=== PATIENT | male | born 1965 | race Caucasian/White ===

== ENCOUNTER 2018-10-09 04:28 | Inpatient (IN) | payer OTHER ==
[~2018-10-09] VITALS: Ht 182.9 cm; Wt 86.4 kg
[~2018-10-09 04:28] MED LIST: ADV25050 INH; ASPI325T32 PO; BACTDS PO; CEPH500C PO; DILT60TA29 PO; FOLI-49 PO; LISI-471 PO; METO-429 PO; MULTI PO; QUET25TA33 PO; THIA100T56 PO; TIOT18CA INH; UDREG PO
[2018-10-09] MEDS ORDERED: SOD CHLORIDE 0.9% 1,000 ML IV STA ×2 (04:30→06:59)
[2018-10-09] MEDS ORDERED: NALOXONE (0.4 MG/ML) INJ IV STA (04:30)
[2018-10-09 04:43] VITALS: Ht 182.9 cm; Wt 86.4 kg
[2018-10-09] MEDS ORDERED: IPRATROPIUM (NEB) 0.5 MG/2.5 ML AMP NEB STA (05:22)
[2018-10-09] MEDS ORDERED: ALBUTEROL 0.083% (NEB) 2.5 MG/3 ML AMP NEB STA (05:22)
--- NOTE | 2018-10-09 05:25 | ERD ---
ER Documentation Chief Complaint Chief Complaint ARLIN RA81,suspected drug overdose,agitated HPI This is a 53-year-old male comes in with complaints suspected drug overdose via rescue. Patient was agitated upon arrival. He admits to using heroin. Upon reviewing EMR, patient has a long-standing history of polysubstance abuse. Denies any fevers or chills. Denies any other current complaints. ROS All systems reviewed and are negative except as per history of present illness. Medications Home Meds Active Scripts Cephalexin* (Cephalexin*) 500 Mg Capsule, 500 MG PO Q6, #28 CAP Prov:RITU FORREST 07/15/16 Sulfamethoxazole-Trimethoprim* (Bactrim* DS) 800-160 Mg Tab, 1 TAB PO BID for 7 Days, TAB Prov:RITU FORREST 07/15/16 Quetiapine Fumarate* (Quetiapine Fumarate*) 25 Mg Tablet, 50 MG PO BID, #20 TAB Prov:SVETLANA LUIS MD 07/06/16 Tiotropium [place]* (Spiriva*) 18 Mcg Cap.w.dev, 1 INH INH DAILY, #1 1 Refill Prov:SVETLANA LUIS MD 07/06/16 Thiamine* (Vitamin B-1*) 100 Mg Tablet, 100 MG PO DAILY, #30 TAB Prov:SVETLANA LUIS MD 07/06/16 Salmeterol Xinaf/Fluticasone* (Advair*) 250-50 Diskus Inhaler, 1 INH INH BID, #1 2 Refills Prov:SVETLANA LUIS MD 07/06/16 Multivitamins* (Theragran*) 1 Tab Tab, 1 TAB PO DAILY, #30 TAB Prov:SVETLANA LUIS MD 07/06/16 Metoprolol Tartrate* (Lopressor*) 50 Mg Tab, 50 MG PO Q6, #60 TAB Prov:SVETLANA LUIS MD 07/06/16 Metoclopramide* (Reglan*) 10 Mg/10 Ml Soln, 10 MG PO Q6, #60 Prov:SVETLANA LUIS MD 07/06/16 Lisinopril* (Lisinopril*) 20 Mg Tablet, 20 MG PO BID, #60 TAB Prov:SVETLANA LUIS MD 07/06/16 Folic Acid* (Folic Acid*) 1 Mg Tablet, 1 MG PO DAILY, #30 TAB Prov:SVETLANA LUIS MD 07/06/16 Diltiazem Hcl* (Cardizem*) 60 Mg Tablet, 60 MG PO QID, #120 TAB Prov:SVETLANA LUIS MD 07/06/16 Reported Medications Aspirin* (Aspirin* EC) 325 Mg Tab, 325 MG PO DAILY, TAB 05/16/16 Allergies Allergies: Coded Allergies: aripiprazole (Verified Allergy, Severe, CONFUSION,GETTING CRAZY, 07/15/16) PMhx/Soc History of Surgery: Yes (s/p L1 to S1 laminectomy for evacuation of epidural abscess 05/20/16) Anesthesia Reaction: Yes Hx Neurological Disorder: No Hx Respiratory Disorders: No Hx Cardiac Disorders: Yes (HYPERTENSION) Hx Psychiatric Problems: Yes (ANXIETY) Hx Miscellaneous Medical Probl: Yes (polysubstance abuse, smoker, chronic back pain, injury R forearm) Hx Alcohol Use: Yes (BEER 2-4 A DAY) Hx Substance Use: Yes (HEROIN) Hx Tobacco Use: Yes (15 CIGARETTES A DAY) Smoking Status: Current every day smoker Physical Exam Vitals Vital Signs Date Temp Pulse Resp B/P (MAP) Pulse Ox O2 O2 Flow FiO2 Time Delivery Rate 10/09/18 26 95 Nasal 4.0 05:37 Cannula 10/09/18 96.8 99 19 133/99 95 04:43 (110) Physical Exam Const: No acute distress Head: Atraumatic Eyes: Normal Conjunctiva ENT: Normal External Ears, Nose and Mouth. Neck: Full range of motion. No meningismus. Resp: Scattered wheezes bilaterally Cardio: Regular rate and rhythm, no murmurs Abd: Soft, non tender, non distended. Normal bowel sounds Skin: No petechiae or rashes Back: No midline or flank tenderness Ext: No cyanosis, or edema Neur: Awake and alert Psych: Normal Mood and Affect Results 24 hrs Laboratory Tests Test 10/09/18 05:19 Urine Color YELLOW Urine Clarity CLEAR Urine pH 5.0 Urine Specific [place] 1.025 Urine Ketones NEGATIVE mg/dL Urine Nitrite NEGATIVE mg/dL Urine Bilirubin NEGATIVE mg/dL Urine Urobilinogen NEGATIVE mg/dL Urine Leukocyte Esterase NEGATIVE Ann/ul Urine Microscopic RBC 8 /HPF Urine Microscopic WBC 2 /HPF Urine Mucus FEW /HPF Urine Hemoglobin 1+ mg/dL Urine Glucose NEGATIVE mg/dL Urine Total Protein NEGATIVE mg/dl Current Medications Medications Dose Sig/Mera Start Time Status Last (Trade) Ordered Route PRN Stop Time Admin Dose Reason Admin Sodium 1,000 ml @ Q1H STAT 10/09/18 DC 10/09/18 Chloride 1,000 mls/hr IV 04:30 10/09/18 05:31 05:29 Naloxone 0.4 mg ONCE STAT 10/09/18 DC 10/09/18 HCl IV 04:30 10/09/18 05:30 (Narcan) 04:32 Albuterol 5 mg ONCE STAT 10/09/18 DC 10/09/18 (Proventil NEB 05:22 10/09/18 05:35 0.083% (Neb)) 05:23 Ipratropium 0.5 mg ONCE STAT 10/09/18 DC 10/09/18 Loraine NEB 05:22 10/09/18 05:36 (Atrovent 05:23 0.02% (Neb)) Procedures/MDM Medical decision makin-year-old male who comes in with likely heroin overdose. Patient is very evasive when asked questions about suicidality. At this point is pending telemetry psychiatry evaluation. Patient's behavioral symptoms have stabilized while in the department. Patient is medically cleared and appropriate for psychiatric evaluation and work up. I agree with the telemetry psychiatrist evaluation they feel that the patient is gravely disabled and will require psychiatric hospitalization No e/o neurologic, toxic, infectious, or metabolic cause. Patient also had evidence of some mild COPD flare. He was given breathing treatment breath sounds cleared. Chest X-ray 1V Interpreted by me: Soft Tissue: No acute abnormalities Bones: No acute abnormalities Mediastinum/Cardiac Silhouette/Lungs: [No acute abnormalities] Departure Diagnosis: Primary Impression: Acute drug overdose Encounter type: initial encounter Injury intent: undetermined intent Qualified Codes: T50.904A - Poisoning by unspecified drugs, medicaments and biological substances, undetermined, initial encounter Additional Impression: COPD (chronic obstructive pulmonary disease) COPD type: unspecified COPD Qualified Codes: J44.9 - Chronic obstructive pulmonary disease, unspecified Condition: Serious JOSE EDUARDOELMER SElida Oct 09, 2018 05:25
--- NOTE | 2018-10-09 05:48 | PSY ---
Date/Time of Note Date/Time of Note DATE: 10/09/18 TIME: 05:46 Psychiatric Subjective Eval Consent Pt consented to telemedicine: Yes Subjective Evaluation Patient location: emergency Chief Complaint: BIBA RA81,suspected drug overdose,agitated Medical history Problems Medical Problems: (1) Abscess Status: Acute (2) Abscess in epidural space of L2-L5 lumbar spine Status: Acute (3) Acute drug overdose Status: Acute (4) Alcoholism /alcohol abuse Status: Chronic (5) Asymmetric septal hypertrophy Status: Chronic (6) COPD (chronic obstructive pulmonary disease) Status: Chronic (7) Encephalopathy acute Status: Acute (8) Hepatitis C antibody positive in blood Status: Chronic (9) Hypertension Status: Chronic (10) Obesity (BMI 30.0-34.9) Status: Chronic (11) Polydrug abuse Status: Chronic (12) Psoas abscess, right Status: Acute (13) Staphylococcus aureus bacteremia with sepsis Status: Acute Allergies: Coded Allergies: aripiprazole (Verified Allergy, Severe, CONFUSION,GETTING CRAZY, 07/15/16) Psychiatric Objective Eval Mental Status Examination: Laboratory Results Laboratory Tests Test 10/09/18 05:19 Urine Color YELLOW Urine Clarity CLEAR Urine pH 5.0 Urine Specific [place] 1.025 Urine Ketones NEGATIVE mg/dL Urine Nitrite NEGATIVE mg/dL Urine Bilirubin NEGATIVE mg/dL Urine Urobilinogen NEGATIVE mg/dL Urine Leukocyte Esterase NEGATIVE Ann/ul Urine Microscopic RBC 8 /HPF Urine Microscopic WBC 2 /HPF Urine Mucus FEW /HPF Urine Hemoglobin 1+ mg/dL Urine Glucose NEGATIVE mg/dL Urine Total Protein NEGATIVE mg/dl Assessment and Plan Recommendation/Plan Discharge Disposition: Psychiatric inpatient Legal Status: Place involuntary hold Assessment Additional comments: IDENTIFYING INFORMATION: 53 year old Male patient who is currently located at the hospital and for whom psychiatric consultation was requested. SOURCES OF INFORMATION: The patient who appears to be unreliable and the medical records; the nursing staff. CHIEF COMPLAINT: "water". HISTORY OF PRESENT ILLNESS: The patient was interviewed via telemedicine in the presence of and under the supervision of nursing staff of the hospital. The consent to conducting this interview via telemedicine was obtained by the nursing staff at the hospital. Dr. Conrteras reports that the patient presented with agitation, found at a rooftop with heroin needles nearby. the patient has a history of past suicide attempts. Is not on a 5150 hold. The patient is not able to answer questions appropriately. He keeps repeating "I need water". Unable to assess Further as the patient was not able to cooperate with the interview at this time. PAST MEDICAL HISTORY: Unable to assess as the patient was not able to cooperate with the interview at this time. CURRENT MEDICATIONS: Unable to assess as the patient was not able to cooperate with the interview at this time. ALLERGIES TO MEDICATIONS: abilify per chart. LABORATORY TESTS: pending. SOCIAL HISTORY: Unable to assess as the patient was not able to cooperate with the interview at this time. REVIEW OF SYSTEMS: unable to assess due to the patient not being able to cooperate. MENTAL STATUS EXAMINATION: General Appearance and Behavior: Agitated, appears to be responding to internal stimuli, uncooperative with most of the interview, distant with the current interviewer, makes poor eye contact, poorly groomed, increased psychomotor activity, no abnormal movements noted. Speech: Normal rate, regular rhythm, normal latency, loud at times volume, decreased amount, Flow of thought: tangential, illogical, not goal-directed. Content of thought: appears to be responding to internal stimuli, unable to a ssess further, Mood: "OK". Affect: agitated, angry, flat, decreased range of reactivity. Attention: normal based on the interview. Insight: poor. Judgment: poor. Memory: normal based on the interview. Sensorium: alert and oriented to person, unable to assess further. ASSESSMENT: The patient's presentation and history are consistent with the diagnosis of unspecified delirium, unspecified psychotic disorder, opiate use disorder. The patient presents with agitation, delirium in the context of possible heroine use. the symptoms were not reversed by naloxone so far. PLAN: - Medication management: Please continue addressing and treating any underlying medical problems that can cause or exacerbate delirium. Would avoid medications that can cause or exacerbate delirium including opioids, antihistamines, anticholinergics, benzodiazepines. Would recommend reorienting the patient frequently and maintaining a stable sleep schedule. Would start haloperidol 5 mg IM PRN severe agitation q4 hours. - Labs: Please check CBC, CMP, Alcohol level, UDS. - Psychotherapy: Provided supportive psychotherapy and psychoeducation. - Disposition: if no underlying cause for delirium is found, and if the patient is medically cleared and the symptoms persist, then would recommend involuntary admission to the inpatient psychiatric unit given the severity of the patient's psychiatric condition and the fact that the patient is an imminent danger to self and/or others so long as the patient has been cleared medically for admission to [facility]. Inpatient psychiatric admission is at this time the least restrictive environment where the patient can receive the psychiatric care that is needed. Would place on suicide precautions. The patient fulfills criteria for being placed on an involuntary hold for being gravely disabled due to a psychiatric disorder. I called the emergency room physician who is taking care of the patient to discuss about the above plan but the emergency room physician is not available at this time. I left my phone number with the hospital staff requesting a callback so that the emergency room physician can reach me when they become available. CICI SALINAS MD Oct 09, 2018 05:48
[2018-10-09] MEDS ORDERED: HALOPERIDOL 5 MG INJ IM ONE (06:30)
[2018-10-09] MEDS ORDERED: INSULIN REGULAR, HUMAN 100 UNIT/1 ML 3ML VIAL IVP STA (06:59)
[2018-10-09] MEDS ORDERED: ALBUTEROL 0.5% (NEB) 2.5 MG/0.5 ML AMP INH STA (06:59)
[2018-10-09] MEDS ORDERED: NA BICARBONATE 8.4% 50 ML SYG IV STA (06:59)
[2018-10-09] MEDS ORDERED: DEXTROSE 50% 50 ML SYRINGE ONE (08:05)
[2018-10-09] MEDS ORDERED: CA CHLORIDE 10% 10 ML SYRINGE IV STA (08:17)
[2018-10-09] MEDS ORDERED: NA POLYST SULFON 15 GM/60 ML BTL PO STA (08:17)
[2018-10-09] MEDS ORDERED: DEXTROSE 50% 50 ML SYRINGE IV ONE (08:30)
--- NOTE | 2018-10-09 08:46 | QN ---
Documentation Comment Medical decision making: Patient was found to have acute renal failure and hyperkalemia with a potassium of 7.2. This was rechecked and confirmed. EKG showed peaked T waves. The patient was treated with albuterol, insulin, glucose, bicarbonate, Kayexalate, and calcium. The patient required sedation with Haldol for agitation and combativeness to protect himself and to protect staff. Soft restraints were placed as well. The patient will be admitted to the care of Dr. Newman as the patient has [employer] insurance. He is unstable for transfer at this time given the hyperkalemia with EKG changes. Critical Care: Time: 35 minutes excluding all billable procedures. Treatments/Evaluations: Close monitoring and treatment of unstable vital signs, cardiorespiratory, and neurologic status, while maintaining tight balance of fluid, respiratory, and cardiac interventions. EKG read by me: Rate/Rhythm: Regular rate and rhythm at a rate of 96 Intervals: Normal Impression: Peak T waves consistent with hyperkalemia MARIAMA PNADEY MD Oct 09, 2018 08:46
[2018-10-09] MEDS ORDERED: LIDOCAINE 1% (MPF) 5 ML VIAL SC ONE (09:00)
[2018-10-09] MEDS ORDERED: IPRATROPIUM (NEB) 0.5 MG/2.5 ML AMP NEB PRN (09:30)
[2018-10-09] MEDS ORDERED: DOCUSATE SODIUM 100 MG CAP PO PRN (09:30)
[2018-10-09] MEDS ORDERED: NALOXONE (0.4 MG/ML) INJ IV PRN (09:30)
[2018-10-09] MEDS ORDERED: ALBUTEROL/IPRATROPIUM (NEB) 3 ML AMP NEB PRN (09:30)
[2018-10-09] MEDS ORDERED: ACETAMINOPHEN 650MG/20.3ML CUP PO PRN (09:30)
[2018-10-09] MEDS ORDERED: NACL 0.9% 3 ML SYG IV SCH (09:30)
[2018-10-09] MEDS ORDERED: ONDANSETRON 4 MG INJ IV PRN (09:30)
[2018-10-09] MEDS ORDERED: VANCOMYCIN IV PER PHARMACY XX SCH (09:30)
[2018-10-09] MEDS: FAMOTIDINE 20 MG INJ IV SCH ×2 (09:52→21:01)
[2018-10-09] MEDS ORDERED: MIDAZOLAM 1 MG/ML 5 ML INJ IV ONE (10:00)
[2018-10-09] MEDS: PIPER-TAZO 3.375 GM IV (PMX) 100 ML IVPB SCH ×2 (10:05→18:18)
--- NOTE | 2018-10-09 10:18 | HP ---
Date/Time of Note Date/Time of Note DATE: 10/09/18 TIME: 10:15 Assessment/Plan VTE Prophylaxis Pharmacological prophylaxis: heparin Lines/Catheters IV [facility] Saline Lock Assessment/Plan Hospital Course 53 years old male with history of polysubstance abuse presented with encephalopathy. He was found to be in sepsis of unknown origin. He was also found to have acute kidney injury in the setting of rhabdomyolysis. His potassium was severely elevated with EKG changes as well. Urine toxicology screen was positive for amphetamines. (1) severe sepsis, with lactic acidosis, unknown origin. Zosyn and vancomycin per pharmacy, lactic acid, ID consultation, culture urine, blood (2) Rhabdomyolysis, setting of methamphetamine overdose, IV fluid, nephrology consultation to Dr. Cristina, serial total CK (3) Elevated liver enzymes, unknown etiology, patient with history of hepatitis B and C, will order abdominal ultrasound (4) High anion gap metabolic acidosis, in the setting of AK I and lactic acidosis, IV D5 bicarbonate, nephrology consultation,, IV fluid and serial lactic acid (5) ARF (acute renal failure), in the setting of rhabdomyolysis, serial creatinine daily, allergy consultation (6) Acute hyperkalemia, setting of AK I and rhabdomyolysis, IV serum bicarb, consultation (7) Acute drug overdose, social worker delinquency prevention consult Problems: (1) Sepsis (2) Rhabdomyolysis (3) Elevated liver enzymes (4) High anion gap metabolic acidosis (5) ARF (acute renal failure) Status: Acute (6) Acute hyperkalemia Status: Acute (7) Acute drug overdose Status: Acute Qualifiers: Encounter type: initial encounter Injury intent: undetermined intent Qualified Codes: T50.904A - Poisoning by unspecified drugs, medicaments and biological substances, undetermined, initial encounter Result Diagram: 10/09/18 0740 10/09/18 0740 Results 24hrs Laboratory Tests Test 10/09/18 05:02 10/09/18 05:19 10/09/18 07:40 10/09/18 07:59 White Blood Count 34.0 #H 30.5 H Red Blood Count 5.41 # 5.54 Hemoglobin 17.4 # 17.7 Hematocrit 54.7 #H 54.7 H Mean Corpuscular Volume 101.1 H 98.7 Mean Corpuscular 32.2 31.9 Hemoglobin Mean Corpuscular 31.8 L 32.4 Hemoglobin Concent Red Cell Distribution 13.2 13.2 Width Platelet Count 399 333 Mean Platelet Volume 10.6 #H 10.2 Immature Granulocytes % 2.000 H 2.000 H Neutrophils % 90.0 H Segmented Neutrophils 89 H 83 H % (Manual) Band Neutrophils % 7 H 13 H (Manual) Lymphocytes % 2.7 L Lymphocytes % (Manual) 3 L 2 L Monocytes % 4.7 Monocytes % (Manual) 1 2 Eosinophils % 0.3 Basophils % 0.3 Nucleated Red Blood 0.0 0.0 Cells % Immature Granulocytes # 0.690 H 0.600 H Neutrophils # 27.5 H Neutrophils # (Manual) 31.0 H 26.5 H Band Neutrophils # 2.3 H 3.9 H Lymphocytes (Manual) 1.0 0.6 L Lymphocytes # 0.8 Monocytes # 1.4 H Monocytes # (Manual) 0.3 0.6 Eosinophils # 0.1 Basophils # 0.1 Nucleated Red Blood 0.0 Cells # Platelet Estimate NORMAL NORMAL Giant Platelets 3 H 3 H Poikilocytosis 1+ Sodium Level 142 146 H Potassium Level 7.2 *H 7.3 *H Chloride Level 103 105 Carbon Dioxide Level 21 18 L Anion Gap 18 H 23 H Blood Urea Nitrogen 39 H 42 H Creatinine 3.04 H 3.18 H Est Glomerular Filtrat 22 L 20 L Rate mL/min Glucose Level 122 119 Calcium Level 8.3 L 8.3 L Total Bilirubin 0.1 L Direct Bilirubin 0.00 Indirect Bilirubin 0.1 Aspartate Amino 671 H Transf (AST/SGOT) Alanine 402 H Aminotransferase (ALT/SG PT) Alkaline Phosphatase 71 Total Protein 8.8 H Albumin 4.9 Globulin 3.90 H Albumin/Globulin Ratio 1.25 Salicylates Level < 1.0 L Acetaminophen Level < 10.0 L Ethyl Alcohol Level < 10.0 H Urine Color YELLOW Urine Clarity CLEAR Urine pH 5.0 Urine Specific [place] 1.025 Urine Ketones NEGATIVE Urine Nitrite NEGATIVE Urine Bilirubin NEGATIVE Urine Urobilinogen NEGATIVE Urine Leukocyte Esterase NEGATIVE Urine Microscopic RBC 8 H Urine Microscopic WBC 2 Urine Mucus FEW A Urine Hemoglobin 1+ H Urine Glucose NEGATIVE Urine Total Protein NEGATIVE Urine Opiates Screen Negative Urine Barbiturates Negative Urine Amphetamines POSITIVE Screen Urine Benzodiazepines Positive Screen Urine Cocaine Screen Negative Urine Cannabinoids Negative Polychromasia 1+ Spherocytes 1+ Creatine Kinase 73302 H Bedside Glucose 84 HPI/ROS Admit Date/Time Admit Date/Time Hx of Present Illness This is a 53 years old male with history of polysubstance abuse, COPD, hypertension, obesity, epidural abscess of the lumbar spine, hepatitis B and C was brought to the hospital for acute encephalopathy. Patient is quite altered and not able to provide detailed HPI. According to EMR patient was very agitated upon arrival in the emergency room. He had multiple lab abnormalities including leukocytosis, elevated creatinine, hyperkalemia with EKG changes, metabolic acidosis, elevated liver enzymes, elevated total CK at 41,000. He received focused treatment for hyperkalemia in the ER. Patient received Narcan as well. Urine toxicology screen was negative for opiates but positive for amphetamine and benzodiazepines. ROS Patient is altered and not able to provide detailed ROS PMH/Family/Social Past Medical History Medications Current Medications IV Flush (NS 3 ml) 3 ml PER PROTOCOL IV ; Start 10/09/18 at 09:30 Naloxone HCl (Narcan) 0.4 mg Q3M PRN IV DECREASED REPIRATORY RATE; Start 10/09/18 at 09:30 Ondansetron HCl (Zofran Inj) 4 mg Q6H PRN IV NAUSEA AND/OR VOMITING; Start 10/09/18 at 09:30 Albuterol/ Ipratropium (Duoneb) 3 ml Q2H RESP THERAPY PRN NEB SHORTNESS OF BREATH; Start 10/09/18 at 09:30 Ipratropium [place] (Atrovent 0.02% (Neb)) 0.5 mg Q2H RESP THERAPY PRN NEB SHORTNESS OF BREATH; Start 10/09/18 at 09:30 Acetaminophen (Tylenol Liquid) 650 mg Q6H PRN PO PAIN LEVEL 1-3 OR FEVER; Start 10/09/18 at 09:30 Docusate Sodium (Colace) 100 mg Q12H PRN PO CONSTIPATION; Start 10/09/18 at 09:30 Famotidine (Pepcid Iv) 20 mg Q12 IV Last administered on 10/09/18at 09:52; Admin Dose 20 MG; Start 10/09/18 at 09:30 Sodium Bicarbonate 150 meq/Dextrose 1,000 ml @ 100 mls/hr Q10H IV ; Start 10/09/18 at 11:00 Piperacillin Sod/ Tazobactam Sod 100 ml @ 200 mls/hr Q8H IVPB Last administered on 10/09/18at 10:05; Admin Dose 200 MLS/HR; Start 10/09/18 at 10:00 Vancomycin HCl (Vanco Iv Per Pharmacy) VANCOMYCIN PER PHARMACY PER PROTOCOL XX ; Start 10/09/18 at 09:30 Vancomycin HCl 1.75 gm/Sodium Chloride 500 ml @ 125 mls/hr ONCE IVPB ; Start 10/09/18 at 11:00; Stop 10/09/18 at 14:59 Coded Allergies: No Known Allergies (Verified Allergy, Unknown, 10/09/18) aripiprazole (Verified Adverse Reaction, Severe, CONFUSION,GETTING CRAZY, 10/09/18) Past Surgical History Past Surgical Hx: other Family History Significant Family History: no pertinent family hx Social History Smoking Status: Current every day smoker Exam/Review of Systems Vital Signs Vitals Vital Signs Date Temp Pulse Resp B/P (MAP) Pulse Ox O2 O2 Flow FiO2 Time Delivery Rate 10/09/18 97.6 100 16 134/88 96 Nasal 09:44 (103) Cannula 10/09/18 6.0 08:08 Intake and Output 10/08/18 10/08/18 10/09/18 1515:00 23:00 07:00 IntakeIntake Total 200 ml BalanceBalance 200 ml JERAD HURT MD Oct 09, 2018 10:18
[2018-10-09] MEDS ORDERED: VANCOMYCIN 1.75 GM in SOD CHLORIDE 0.9% 500 ML IVPB SCH (11:00)
[2018-10-09] MEDS: SODIUM BICARBONATE (IV ADD) 150 MEQ in DEXTROSE 5% 1,000 ML IV SCH ×2 (11:14→21:38)
[2018-10-09] MEDS ORDERED: LACTATED RINGER'S 1,000 ML IV ONE (12:30)
--- NOTE | 2018-10-09 14:21 | CONS ---
Date/Time of Note Date/Time of Note DATE: 10/09/18 TIME: 14:21 Assessment/Plan Assessment/Plan Result Diagram: 10/09/18 0740 10/09/18 1107 Results 24hrs Laboratory Tests Test 10/09/18 05:02 10/09/18 05:19 10/09/18 07:40 10/09/18 07:59 White Blood Count 34.0 #H 30.5 H Red Blood Count 5.41 # 5.54 Hemoglobin 17.4 # 17.7 Hematocrit 54.7 #H 54.7 H Mean Corpuscular 101.1 H 98.7 Volume Mean Corpuscular 32.2 31.9 Hemoglobin Mean Corpuscular 31.8 L 32.4 Hemoglobin Concent Red Cell 13.2 13.2 Distribution Width Platelet Count 399 333 Mean Platelet 10.6 #H 10.2 Volume Immature 2.000 H 2.000 H Granulocytes % Neutrophils % 90.0 H Segmented 89 H 83 H Neutrophils % (Manual) Band Neutrophils % 7 H 13 H (Manual) Lymphocytes % 2.7 L Lymphocytes % 3 L 2 L (Manual) Monocytes % 4.7 Monocytes % 1 2 (Manual) Eosinophils % 0.3 Basophils % 0.3 Nucleated Red 0.0 0.0 Blood Cells % Immature 0.690 H 0.600 H Granulocytes # Neutrophils # 27.5 H Neutrophils # 31.0 H 26.5 H (Manual) Band Neutrophils # 2.3 H 3.9 H Lymphocytes 1.0 0.6 L (Manual) Lymphocytes # 0.8 Monocytes # 1.4 H Monocytes # 0.3 0.6 (Manual) Eosinophils # 0.1 Basophils # 0.1 Nucleated Red 0.0 Blood Cells # Platelet Estimate NORMAL NORMAL Giant Platelets 3 H 3 H Poikilocytosis 1+ Sodium Level 142 146 H Potassium Level 7.2 *H 7.3 *H Chloride Level 103 105 Carbon Dioxide 21 18 L Level Anion Gap 18 H 23 H Blood Urea 39 H 42 H Nitrogen Creatinine 3.04 H 3.18 H Est Glomerular 22 L 20 L Filtrat Rate mL/min Glucose Level 122 119 Calcium Level 8.3 L 8.3 L Total Bilirubin 0.1 L Direct Bilirubin 0.00 Indirect Bilirubin 0.1 Aspartate Amino 671 H Transf (AST/SGOT) Alanine 402 H Aminotransferase ( ALT/SGPT) Alkaline 71 Phosphatase Total Protein 8.8 H Albumin 4.9 Globulin 3.90 H Albumin/Globulin 1.25 Ratio Salicylates Level < 1.0 L Acetaminophen < 10.0 L Level Ethyl Alcohol < 10.0 H Level Urine Color YELLOW Urine Clarity CLEAR Urine pH 5.0 Urine Specific 1.025 [place] Urine Ketones NEGATIVE Urine Nitrite NEGATIVE Urine Bilirubin NEGATIVE Urine Urobilinogen NEGATIVE Urine Leukocyte NEGATIVE Esterase Urine Microscopic 8 H RBC Urine Microscopic 2 WBC Urine Mucus FEW A Urine Hemoglobin 1+ H Urine Glucose NEGATIVE Urine Total NEGATIVE Protein Urine Opiates Negative Screen Urine Barbiturates Negative Urine Amphetamines POSITIVE Screen Urine Positive Benzodiazepines Screen Urine Cocaine Negative Screen Urine Cannabinoids Negative Polychromasia 1+ Spherocytes 1+ Creatine Kinase 89610 H Bedside Glucose 84 Test 10/09/18 09:13 10/09/18 11:07 Blood Gas Specimen Blood arterial Source Arterial Blood 10/09/2018 10:25:44 Date Drawn AM Arterial Blood pH 7.190 *L (Temp corrected) Arterial Blood 50.8 H pCO2 (Temp correct) Arterial Blood pO2 54.0 *L (Temp corrected) Arterial Blood 19.0 L HCO3 Arterial Blood -9.6 L Base Excess Arterial Blood 83.0 L Oxygen Saturation Pedro Test ACCEPTAB Arterial Blood Gas Left Radial Puncture Site Arterial 0.7 Blood Carboxyhemog lobin Arterial Blood 0.5 Methemoglobin Blood Gas A-a O2 608.2 H Differential Oxyhemoglobin 82.0 L Percent Blood Gas 37.0 Temperature Blood Gas Modality MASK - NRB FiO2 100.0 Blood Gas Critical XIANG SAMPSON Value Read Back Blood Gas Notified TM Whom Blood Gas Notified 10/09/2018 10:32:20 Time AM Sodium Level 141 Potassium Level 5.0 # Chloride Level 107 Carbon Dioxide 21 Level Anion Gap 13 # Blood Urea 47 H Nitrogen Creatinine 2.90 H Est Glomerular 23 L Filtrat Rate mL/min Glucose Level 133 Lactic Acid Level 4.9 *H Calcium Level 7.7 L Total Bilirubin 0.1 L Direct Bilirubin 0.00 Indirect Bilirubin 0.1 Aspartate Amino 927 H Transf (AST/SGOT) Alanine 383 H Aminotransferase ( ALT/SGPT) Alkaline 55 Phosphatase Total Protein 7.1 # Albumin 3.8 # Globulin 3.30 H Albumin/Globulin 1.15 Ratio Consultation Date/Type/Reason Admit Date/Time 10/09/2018 Date of Consultation: Oct 09, 2018 Type of Consult NEPHROLOGY Reason for Consultation Acute kidney injury, Hyperkalemia, Metabolic acidosis, Acute Rhabdomyolysis Requesting Provider: JERAD HURT MD Past Medical History Medications Current Medications IV Flush (NS 3 ml) 3 ml PER PROTOCOL IV ; Start 10/09/18 at 09:30 Naloxone HCl (Narcan) 0.4 mg Q3M PRN IV DECREASED REPIRATORY RATE; Start 10/09/18 at 09:30 Ondansetron HCl (Zofran Inj) 4 mg Q6H PRN IV NAUSEA AND/OR VOMITING; Start 10/09/18 at 09:30 Albuterol/ Ipratropium (Duoneb) 3 ml Q2H RESP THERAPY PRN NEB SHORTNESS OF BREATH; Start 10/09/18 at 09:30 Ipratropium [place] (Atrovent 0.02% (Neb)) 0.5 mg Q2H RESP THERAPY PRN NEB SHORTNESS OF BREATH; Start 10/09/18 at 09:30 Acetaminophen (Tylenol Liquid) 650 mg Q6H PRN PO PAIN LEVEL 1-3 OR FEVER; Start 10/09/18 at 09:30 Docusate Sodium (Colace) 100 mg Q12H PRN PO CONSTIPATION; Start 10/09/18 at 09:30 Famotidine (Pepcid Iv) 20 mg Q12 IV Last administered on 10/09/18at 09:52; Admin Dose 20 MG; Start 10/09/18 at 09:30 Sodium Bicarbonate 150 meq/Dextrose 1,000 ml @ 100 mls/hr Q10H IV Last administered on 10/09/18at 11:14; Admin Dose 100 MLS/HR; Start 10/09/18 at 11:00 Piperacillin Sod/ Tazobactam Sod 100 ml @ 200 mls/hr Q8H IVPB Last administered on 10/09/18at 10:05; Admin Dose 200 MLS/HR; Start 10/09/18 at 10:00 Vancomycin HCl (Vanco Iv Per Pharmacy) VANCOMYCIN PER PHARMACY PER PROTOCOL XX ; Start 10/09/18 at 09:30 Vancomycin HCl 1.75 gm/Sodium Chloride 500 ml @ 125 mls/hr ONCE IVPB Last administered on 10/09/18at 11:39; Admin Dose 125 MLS/HR; Start 10/09/18 at 11:00; Stop 10/09/18 at 14:59 Allergies: Coded Allergies: No Known Allergies (Verified Allergy, Unknown, 10/09/18) aripiprazole (Verified Adverse Reaction, Severe, CONFUSION,GETTING CRAZY, 10/09/18) Past Surgical History Past Surgical Hx: other Social History Smoking Status: Current every day smoker Exam/Review of Systems Vital Signs Vitals Vital Signs Date Temp Pulse Resp B/P (MAP) Pulse Ox O2 O2 Flow FiO2 Time Delivery Rate 10/09/18 104 100 85 12:10 10/09/18 97.4 18 130/87 BIPAP 11:24 (101) 10/09/18 6.0 08:08 Intake and Output 10/08/18 10/08/18 10/09/18 1515:00 23:00 07:00 IntakeIntake Total 200 ml BalanceBalance 200 ml Medications Medications Current Medications IV Flush (NS 3 ml) 3 ml PER PROTOCOL IV ; Start 10/09/18 at 09:30 Naloxone HCl (Narcan) 0.4 mg Q3M PRN IV DECREASED REPIRATORY RATE; Start at 09:30 Ondansetron HCl (Zofran Inj) 4 mg Q6H PRN IV NAUSEA AND/OR VOMITING; Start 10/09/18 at 09:30 Albuterol/ Ipratropium (Duoneb) 3 ml Q2H RESP THERAPY PRN NEB SHORTNESS OF BREATH; Start 10/09/18 at 09:30 Ipratropium [place] (Atrovent 0.02% (Neb)) 0.5 mg Q2H RESP THERAPY PRN NEB SHORTNESS OF BREATH; Start 10/09/18 at 09:30 Acetaminophen (Tylenol Liquid) 650 mg Q6H PRN PO PAIN LEVEL 1-3 OR FEVER; Start 10/09/18 at 09:30 Docusate Sodium (Colace) 100 mg Q12H PRN PO CONSTIPATION; Start 10/09/18 at 09:30 Famotidine (Pepcid Iv) 20 mg Q12 IV Last administered on 10/09/18at 09:52; Admin Dose 20 MG; Start 10/09/18 at 09:30 Sodium Bicarbonate 150 meq/Dextrose 1,000 ml @ 100 mls/hr Q10H IV Last administered on 10/09/18at 11:14; Admin Dose 100 MLS/HR; Start 10/09/18 at 11:00 Piperacillin Sod/ Tazobactam Sod 100 ml @ 200 mls/hr Q8H IVPB Last administered on 10/09/18at 10:05; Admin Dose 200 MLS/HR; Start 10/09/18 at 10:00 Vancomycin HCl (Vanco Iv Per Pharmacy) VANCOMYCIN PER PHARMACY PER PROTOCOL XX ; Start 10/09/18 at 09:30 Vancomycin HCl 1.75 gm/Sodium Chloride 500 ml @ 125 mls/hr ONCE IVPB Last administered on 10/09/18at 11:39; Admin Dose 125 MLS/HR; Start 10/09/18 at 11:00; Stop 10/09/18 at 14:59 ROYA COOL MD Oct 09, 2018 14:21
--- NOTE | 2018-10-09 14:25 | CONS ---
Date/Time of Note Date/Time of Note DATE: 10/09/18 TIME: 14:25 Assessment/Plan Assessment/Plan Assessment/Plan 1. Acute Kidney injury due to ATN from Acute rhabdomyolysis 2. Acute Rhabdomyolysis 3. Acute hyperkalemia due to RILEY 4. Metabolic acidosis 5. H/o HTN 6. H/o Anxiety 7. H/o Polysubstance abuse 8. H/o Chronic back pain with h/o L5-S1 laminectomy Plan: seen in ED, pt is on BIPAP, IV Bicarbonate drip d5W with sodium bicarbonate at 100 cc/hr CK total, Uric acid in AM K now normal, repeat BMP stat Abd US has been ordered for elevated LFTs and acute renal failure Urine studies including urine Na, Urine prot/cr ration, urine esoinophisl, CK total, Uric acid Thanks for consultation, I will continue to follow up Result Diagram: 10/09/18 0740 10/09/18 1107 Results 24hrs Laboratory Tests Test 10/09/18 05:02 10/09/18 05:19 10/09/18 07:40 10/09/18 07:59 White Blood Count 34.0 #H 30.5 H Red Blood Count 5.41 # 5.54 Hemoglobin 17.4 # 17.7 Hematocrit 54.7 #H 54.7 H Mean Corpuscular 101.1 H 98.7 Volume Mean Corpuscular 32.2 31.9 Hemoglobin Mean Corpuscular 31.8 L 32.4 Hemoglobin Concent Red Cell 13.2 13.2 Distribution Width Platelet Count 399 333 Mean Platelet 10.6 #H 10.2 Volume Immature 2.000 H 2.000 H Granulocytes % Neutrophils % 90.0 H Segmented 89 H 83 H Neutrophils % (Manual) Band Neutrophils % 7 H 13 H (Manual) Lymphocytes % 2.7 L Lymphocytes % 3 L 2 L (Manual) Monocytes % 4.7 Monocytes % 1 2 (Manual) Eosinophils % 0.3 Basophils % 0.3 Nucleated Red 0.0 0.0 Blood Cells % Immature 0.690 H 0.600 H Granulocytes # Neutrophils # 27.5 H Neutrophils # 31.0 H 26.5 H (Manual) Band Neutrophils # 2.3 H 3.9 H Lymphocytes 1.0 0.6 L (Manual) Lymphocytes # 0.8 Monocytes # 1.4 H Monocytes # 0.3 0.6 (Manual) Eosinophils # 0.1 Basophils # 0.1 Nucleated Red 0.0 Blood Cells # Platelet Estimate NORMAL NORMAL Giant Platelets 3 H 3 H Poikilocytosis 1+ Sodium Level 142 146 H Potassium Level 7.2 *H 7.3 *H Chloride Level 103 105 Carbon Dioxide 21 18 L Level Anion Gap 18 H 23 H Blood Urea 39 H 42 H Nitrogen Creatinine 3.04 H 3.18 H Est Glomerular 22 L 20 L Filtrat Rate mL/min Glucose Level 122 119 Calcium Level 8.3 L 8.3 L Total Bilirubin 0.1 L Direct Bilirubin 0.00 Indirect Bilirubin 0.1 Aspartate Amino 671 H Transf (AST/SGOT) Alanine 402 H Aminotransferase ( ALT/SGPT) Alkaline 71 Phosphatase Total Protein 8.8 H Albumin 4.9 Globulin 3.90 H Albumin/Globulin 1.25 Ratio Salicylates Level < 1.0 L Acetaminophen < 10.0 L Level Ethyl Alcohol < 10.0 H Level Urine Color YELLOW Urine Clarity CLEAR Urine pH 5.0 Urine Specific 1.025 [place] Urine Ketones NEGATIVE Urine Nitrite NEGATIVE Urine Bilirubin NEGATIVE Urine Urobilinogen NEGATIVE Urine Leukocyte NEGATIVE Esterase Urine Microscopic 8 H RBC Urine Microscopic 2 WBC Urine Mucus FEW A Urine Hemoglobin 1+ H Urine Glucose NEGATIVE Urine Total NEGATIVE Protein Urine Opiates Negative Screen Urine Barbiturates Negative Urine Amphetamines POSITIVE Screen Urine Positive Benzodiazepines Screen Urine Cocaine Negative Screen Urine Cannabinoids Negative Polychromasia 1+ Spherocytes 1+ Creatine Kinase 91226 H Bedside Glucose 84 Test 10/09/18 09:13 10/09/18 11:07 Blood Gas Specimen Blood arterial Source Arterial Blood 10/09/2018 10:25:44 Date Drawn AM Arterial Blood pH 7.190 *L (Temp corrected) Arterial Blood 50.8 H pCO2 (Temp correct) Arterial Blood pO2 54.0 *L (Temp corrected) Arterial Blood 19.0 L HCO3 Arterial Blood -9.6 L Base Excess Arterial Blood 83.0 L Oxygen Saturation Pedro Test ACCEPTAB Arterial Blood Gas Left Radial Puncture Site Arterial 0.7 Blood Carboxyhemog lobin Arterial Blood 0.5 Methemoglobin Blood Gas A-a O2 608.2 H Differential Oxyhemoglobin 82.0 L Percent Blood Gas 37.0 Temperature Blood Gas Modality MASK - NRB FiO2 100.0 Blood Gas Critical XIANG SAMPSON Value Read Back Blood Gas Notified TM Whom Blood Gas Notified 10/09/2018 10:32:20 Time AM Sodium Level 141 Potassium Level 5.0 # Chloride Level 107 Carbon Dioxide 21 Level Anion Gap 13 # Blood Urea 47 H Nitrogen Creatinine 2.90 H Est Glomerular 23 L Filtrat Rate mL/min Glucose Level 133 Lactic Acid Level 4.9 *H Calcium Level 7.7 L Total Bilirubin 0.1 L Direct Bilirubin 0.00 Indirect Bilirubin 0.1 Aspartate Amino 927 H Transf (AST/SGOT) Alanine 383 H Aminotransferase ( ALT/SGPT) Alkaline 55 Phosphatase Total Protein 7.1 # Albumin 3.8 # Globulin 3.30 H Albumin/Globulin 1.15 Ratio Consultation Date/Type/Reason Admit Date/Time 10/09/2018 Date of Consultation: Oct 09, 2018 Type of Consult NEPHROLOGY Reason for Consultation acute kidney injury, Hyperkalemia, Metabolic acidosis Requesting Provider: JERAD HURT MD Hx of Present Illness 53 years old male with history of polysubstance abuse, COPD, hypertension, obesity, epidural abscess of the lumbar spine, hepatitis B and C was brought to the hospital for acute encephalopathy. Patient is quite altered and not able to provide detailed HPI. According to EMR patient was very agitated upon arrival in the emergency room. pt had a elevated total CK at 41,000. K 7.2, BUN/Cr 39/3.04, HCo3 18- Renal has been consulted for acute hyperkalemia, metabolic acidosis and Acute kidney inury with acute rhabdomyolysis. s/p Treatment for hyperkalemia in ED. Subjective hx not possible: pt critical status, other (Moderate distress ) Eyes: no complaints ENT: no complaints Respiratory: shortness of breath Cardiovascular: no complaints Gastrointestinal: no complaints Genitourinary: no complaints Musculoskeletal: no complaints Skin: no complaints Neurologic: no complaints Endocrine: no complaints Lymphatic: no complaints Psychological: no complaints Immunologic: no complaints Past Medical History Medical History: hypertension, other Medications Current Medications IV Flush (NS 3 ml) 3 ml PER PROTOCOL IV ; Start 10/09/18 at 09:30 Naloxone HCl (Narcan) 0.4 mg Q3M PRN IV DECREASED REPIRATORY RATE; Start 10/09/18 at 09:30 Ondansetron HCl (Zofran Inj) 4 mg Q6H PRN IV NAUSEA AND/OR VOMITING; Start 10/09/18 at 09:30 Albuterol/ Ipratropium (Duoneb) 3 ml Q2H RESP THERAPY PRN NEB SHORTNESS OF BREATH; Start 10/09/18 at 09:30 Ipratropium [place] (Atrovent 0.02% (Neb)) 0.5 mg Q2H RESP THERAPY PRN NEB SHORTNESS OF BREATH; Start 10/09/18 at 09:30 Acetaminophen (Tylenol Liquid) 650 mg Q6H PRN PO PAIN LEVEL 1-3 OR FEVER; Start 10/09/18 at 09:30 Docusate Sodium (Colace) 100 mg Q12H PRN PO CONSTIPATION; Start 10/09/18 at 09:30 Famotidine (Pepcid Iv) 20 mg Q12 IV Last administered on 10/09/18at 09:52; Admin Dose 20 MG; Start 10/09/18 at 09:30 Sodium Bicarbonate 150 meq/Dextrose 1,000 ml @ 100 mls/hr Q10H IV Last administered on 10/09/18at 11:14; Admin Dose 100 MLS/HR; Start 10/09/18 at 11:00 Piperacillin Sod/ Tazobactam Sod 100 ml @ 200 mls/hr Q8H IVPB Last administered on 10/09/18at 10:05; Admin Dose 200 MLS/HR; Start 10/09/18 at 10:00 Vancomycin HCl (Vanco Iv Per Pharmacy) VANCOMYCIN PER PHARMACY PER PROTOCOL XX ; Start 10/09/18 at 09:30 Vancomycin HCl 1.75 gm/Sodium Chloride 500 ml @ 125 mls/hr ONCE IVPB Last administered on 10/09/18at 11:39; Admin Dose 125 MLS/HR; Start 10/09/18 at 11:00; Stop 10/09/18 at 14:59 Allergies: Coded Allergies: aripiprazole (Verified Adverse Reaction, Severe, CONFUSION,GETTING CRAZY, 10/09/18) Past Surgical History Past Surgical Hx: other (Laminectomy ) Family History Significant Family History: no pertinent family hx Social History Alcohol Use: none Smoking Status: Current every day smoker Drug Use: none Exam/Review of Systems Vital Signs Vitals Vital Signs Date Temp Pulse Resp B/P (MAP) Pulse Ox O2 O2 Flow FiO2 Time Delivery Rate 10/09/18 104 100 85 12:10 10/09/18 97.4 18 130/87 BIPAP 11:24 (101) 10/09/18 6.0 08:08 Intake and Output 10/08/18 10/08/18 10/09/18 1515:00 23:00 07:00 IntakeIntake Total 200 ml BalanceBalance 200 ml Exam Constitutional: alert, distress, other (on BIPAP) Psych: no complaints Head: normocephalic Eyes: nl conjunctiva ENMT: nl external ears & nose Neck: supple, non-tender Respiratory: clear to auscultation, congested cough, diminished breath sounds Cardiovascular: regular rate and rhythm, nl pulses Gastrointestinal: soft, non-tender Musculoskeletal: nl extremities to inspection, nl gait and stance Neurological: [employer] II-XII intact, nl mental status, nl speech, nl strength Skin: nl turgor Lymph: nl lymph nodes Medications Medications Current Medications IV Flush (NS 3 ml) 3 ml PER PROTOCOL IV ; Start 10/09/18 at 09:30 Naloxone HCl (Narcan) 0.4 mg Q3M PRN IV DECREASED REPIRATORY RATE; Start 10/09/18 at 09:30 Ondansetron HCl (Zofran Inj) 4 mg Q6H PRN IV NAUSEA AND/OR VOMITING; Start 10/09/18 at 09:30 Albuterol/ Ipratropium (Duoneb) 3 ml Q2H RESP THERAPY PRN NEB SHORTNESS OF BREATH; Start 10/09/18 at 09:30 Ipratropium [place] (Atrovent 0.02% (Neb)) 0.5 mg Q2H RESP THERAPY PRN NEB SHORTNESS OF BREATH; Start 10/09/18 at 09:30 Acetaminophen (Tylenol Liquid) 650 mg Q6H PRN PO PAIN LEVEL 1-3 OR FEVER; Start 10/09/18 at 09:30 Docusate Sodium (Colace) 100 mg Q12H PRN PO CONSTIPATION; Start 10/09/18 at 09:30 Famotidine (Pepcid Iv) 20 mg Q12 IV Last administered on 10/09/18at 09:52; Admin Dose 20 MG; Start 10/09/18 at 09:30 Sodium Bicarbonate 150 meq/Dextrose 1,000 ml @ 100 mls/hr Q10H IV Last admini stered on 10/09/18at 11:14; Admin Dose 100 MLS/HR; Start 10/09/18 at 11:00 Piperacillin Sod/ Tazobactam Sod 100 ml @ 200 mls/hr Q8H IVPB Last administered on 10/09/18at 10:05; Admin Dose 200 MLS/HR; Start 10/09/18 at 10:00 Vancomycin HCl (Vanco Iv Per Pharmacy) VANCOMYCIN PER PHARMACY PER PROTOCOL XX ; Start 10/09/18 at 09:30 Vancomycin HCl 1.75 gm/Sodium Chloride 500 ml @ 125 mls/hr ONCE IVPB Last a dministered on 10/09/18at 11:39; Admin Dose 125 MLS/HR; Start 10/09/18 at 11:00; Stop 10/09/18 at 14:59 ROYA COOL MD Oct 09, 2018 14:25
--- NOTE | 2018-10-09 15:15 | CONS ---
DATE OF ADMISSION: 10/09/2018 DATE OF CONSULTATION: 10/09/2018 TYPE OF CONSULTATION: Infectious disease. REASON FOR CONSULTATION: Antibiotic management. HISTORY OF PRESENT ILLNESS: Claude Del Castillo is a 53-year-old male who comes in with complaints of a s uspected overdose and is being seen for antibiotic management. The patient has a long history of eula ysubstance abuse. Denies fever or chills. His past problems include: 1. Status post L1-S1 laminectomies from evacuation of an epidural abscess on 05/20/2016. 2. Hypertension. 3. Anxiety. 4. Polysubstance abuse. 5. Chronic back pain. 6. Injury to the right forearm. FAMILY HISTORY: Noncontributory. SOCIAL HISTORY: He drinks 2 to 4 beers a day. He abuses heroin, he smokes 15 cigarettes a day--almo st 1 pack. He is an everyday smoker. ALLERGIES: ARIPIPRAZOLE (psychiatric drug). MEDICATIONS: Per chart. REVIEW OF SYSTEMS: Noncontributory. HOSPITAL COURSE: On admission, his white count is 30.5, H and H of 7.7 and 54.7, platelet count of 3 73,000. His potassium is 7.3. BUN and creatinine 42/3.18. His evaluation for cocaine and cannabis are negative. Patient was started on vancomycin and Zosyn. According to , the patient has sepsis with rhabdomyolysis, elevated liver enzymes, high anion gap metabolic acidosis with a CO2 of 1 8. He has acute hyperkalemia, acute drug overdose. PHYSICAL EXAMINATION: VITAL SIGNS: Stable. He is afebrile. SKIN: Without generalized rash. HEENT: Within normal limits. NECK: Supple. LYMPH NODES: None palpable. CHEST: Decreased breath sounds at the bases. HEART: Without murmur or gallop. ABDOMEN: Soft, nontender, without organosplenomegaly or masses. EXTREMITIES: Without cyanosis, clubbing, or edema. RECTAL AND GENITAL: Deferred. NEUROLOGIC: No focal neurological abnormalities. According to Dr. Welsh, the patient was found to have acute renal failure, hyperkalemia with potassi um is 7.2. He had peaked T waves. He was treated with Albuterol, insulin, glucose and bicarbonate, Kayexalate and calcium. He required sedation with Haldol for agitation and combativeness to protect himself and to protect staff. Soft restraints were placed as well. Patient was admitted currently s till in the Emergency Room. We will continue him on current therapy with vancomycin and Zosyn. He w as seen by Dr. Conner Cristina and will probably undergo hemodialysis. I will dictate my findings to [facility] hospitalists, and to and Dr. Conner Cristina. Dictated By: THONG NOWAK MD, JD/ANALILIA Conf#: [id number] DID#: [id number]
[2018-10-09] MEDS: DEXTROSE 50% 50 ML SYRINGE IV PRN ×2 (15:40→15:44)
[2018-10-09] MEDS: HALOPERIDOL 5 MG INJ IV PRN ×2 (19:26→23:44)
[2018-10-09] MEDS: HEPARIN 5,000 UNIT/1 ML VIAL SC SCH (21:02)
[2018-10-09 23:34] VITALS: PULSE 99
[2018-10-09 23:35] VITALS: BP 125/81; PULSE 101; PULSE 98; RESP 22
[2018-10-10] VITALS (29 sets, daily range): BP systolic 128–160; BP diastolic 75–107; PULSE 95–121; RESP 14–22
[2018-10-10] MEDS: PIPER-TAZO 3.375 GM IV (PMX) 100 ML IVPB SCH ×3 (01:48→18:03)
[2018-10-10] MEDS: HALOPERIDOL 5 MG INJ IV PRN ×3 (01:48→10:28)
[2018-10-10] MEDS: ACCU-CHEK XX SCH (02:00)
[2018-10-10] MEDS: FAMOTIDINE 20 MG INJ IV SCH ×2 (09:09→20:30)
[2018-10-10] MEDS: SODIUM BICARBONATE (IV ADD) 150 MEQ in DEXTROSE 5% 1,000 ML IV SCH ×2 (09:12→19:07)
[2018-10-10] MEDS: HEPARIN 5,000 UNIT/1 ML VIAL SC SCH ×2 (09:12→20:35)
--- NOTE | 2018-10-10 09:35 | CONS ---
Date/Time of Note Date/Time of Note DATE: 10/10/18 TIME: 09:32 Assessment/Plan Assessment/Plan Assessment/Plan Chest x-ray was reviewed from yesterday which is essentially clear. Assessment recommendations; 1. Patient with a history of drug abuse admitted for drug overdose causing respiratory failure with hypercapnia with significant interval improvement on BiPAP. Patient now weaned down to nasal cannula with stable pulmonary status. 2. Chronic renal insufficiency. 3. Acute hyperkalemia on admission with interval correction. 4. Significant leukocytosis of unknown etiology. Patient currently on appropriate empiric antimicrobial coverage. 5. Mild thrombocytopenia. Continue current supportive care. Obtain repeat ABG. Result Diagram: 10/10/18 0512 10/10/18 0512 Results 24hrs Laboratory Tests Test 10/09/18 11:07 10/09/18 15:23 10/09/18 15:52 10/09/18 16:14 Sodium Level 141 Potassium Level 5.0 # Chloride Level 107 Carbon Dioxide 21 Level Anion Gap 13 # Blood Urea 47 H Nitrogen Creatinine 2.90 H Est Glomerular 23 L Filtrat Rate mL/min Glucose Level 133 Lactic Acid Level 4.9 *H Calcium Level 7.7 L Total Bilirubin 0.1 L Direct Bilirubin 0.00 Indirect Bilirubin 0.1 Aspartate Amino 927 H Transf (AST/SGOT) Alanine 383 H Aminotransferase ( ALT/SGPT) Alkaline 55 Phosphatase Total Protein 7.1 # Albumin 3.8 # Globulin 3.30 H Albumin/Globulin 1.15 Ratio Bedside Glucose 71 78 190 Test 10/09/18 18:58 10/10/18 00:41 10/10/18 02:56 10/10/18 05:12 Urine Color OLIVERIO Urine Clarity CLOUDY A Urine pH 5.0 Urine Specific 1.024 [place] Urine Ketones NEGATIVE Urine Nitrite NEGATIVE Urine Bilirubin NEGATIVE Urine Urobilinogen NEGATIVE Urine Leukocyte NEGATIVE Esterase Urine Microscopic 86 H RBC Urine Microscopic 11 H WBC Urine Calcium MODERATE Oxalate Crystals Urine Bacteria FEW A Urine Granular FEW A Casts Urine Mucus MODERATE Urine Eosinophils 0.0 % Urine Hemoglobin 3+ H Urine Random 175.76 Creatinine Urine Random 153 H Sodium Urine 0.42 Protein/Creatinine Ratio Urine Glucose NEGATIVE Urine Total 75.0 H Protein Sodium Level 140 138 Potassium Level 4.4 4.5 Chloride Level 109 105 Carbon Dioxide 21 21 Level Anion Gap 10 12 Blood Urea 55 H 62 H Nitrogen Creatinine 3.47 H 3.86 H Est Glomerular 18 L 16 L Filtrat Rate mL/min Glucose Level 103 101 Calcium Level 7.3 L 7.0 L Blood Gas Specimen Blood arterial Source Arterial Blood 10/10/2018 1:25:21 Date Drawn AM Arterial Blood pH 7.358 (Temp corrected) Arterial Blood 37.0 pCO2 (Temp correct) Arterial Blood pO2 90.9 (Temp corrected) Arterial Blood 20.3 L HCO3 Arterial Blood -4.5 L Base Excess Arterial Blood 97.4 Oxygen Saturation Pedro Test ACCEPTAB Arterial Blood Gas Right Radial Puncture Site Arterial 0.2 Blood Carboxyhemog lobin Arterial Blood 0.5 Methemoglobin Blood Gas A-a O2 585.1 H Differential Oxyhemoglobin 96.7 Percent Blood Gas 37.0 Temperature Blood Gas 14.0 Respiration Rate Blood Gas Actual 4 Respiration Rate Blood Gas Modality MASK - BIPAP FiO2 100.0 Blood Gas 15/5 IPAP/EPAP Ratio Blood Gas Critical C Lecaros Value Read Back Blood Gas Notified Braulio Whom Blood Gas Notified 10/10/2018 1:51:03 Time AM Bedside Glucose 111 White Blood Count 14.9 #H Red Blood Count 4.22 #L Hemoglobin 13.6 #L Hematocrit 40.1 #L Mean Corpuscular 95.0 Volume Mean Corpuscular 32.2 Hemoglobin Mean Corpuscular 33.9 Hemoglobin Concent Red Cell 13.4 Distribution Width Platelet Count 196 # Mean Platelet 10.8 H Volume Immature 1.700 H Granulocytes % Neutrophils % Segmented 36 L Neutrophils % (Manual) Band Neutrophils % 46 H (Manual) Lymphocytes % Lymphocytes % 4 L (Manual) Reactive 2 H Lymphocytes % (Manual) Monocytes % Monocytes % 4 (Manual) Eosinophils % Basophils % Metamyelocytes % 5 H (manual) Myelocytes % 3 H (Manual) Nucleated Red 0.0 Blood Cells % Immature 0.260 H Granulocytes # Neutrophils # Neutrophils # 6.4 (Manual) Band Neutrophils # 6.8 H Lymphocytes 0.5 L (Manual) Lymphocytes # Reactive 0.2 H Lymphocytes # Monocytes # Monocytes # 0.5 (Manual) Eosinophils # Basophils # Metamyelocytes # 0.7 H Myelocytes # 0.4 H Nucleated Red Blood Cells # Platelet Estimate NORMAL Poikilocytosis 1+ Anisocytosis 1+ Prothrombin Time 21.2 H Prothrombin Time 1.7 Ratio INR International 1.82 Normalized Ratio Activated 43.[address] Time Uric Acid 10.6 H Magnesium Level 1.6 L Total Bilirubin 0.3 Direct Bilirubin 0.00 Indirect Bilirubin 0.3 Aspartate Amino 718 H Transf (AST/SGOT) Alanine 309 H Aminotransferase ( ALT/SGPT) Alkaline 48 Phosphatase Creatine Kinase 11421 #H Total Protein 5.7 #L Albumin 3.0 L Globulin 2.70 Albumin/Globulin 1.11 Ratio Consultation Date/Type/Reason Admit Date/Time 10/09/2018 Date of Consultation: Oct 10, 2018 Type of Consult Pulmonary/critical care History of presenting illness; Patient is a 53-year-old male who was brought into the hospital because of altered mental status. Patient apparently had taken some drugs including amphetamines and benzodiazepines and was in hypercapnic respiratory failure. However the patient did not require intubation and did very well on BiPAP and by the time I saw him patient is completely awake and alert and was responsive appropriately. He denies any shortness of breath, chest pain, abdominal pain, nausea vomiting or fever. Past medical history; 1. Apparent chronic renal insufficiency. Patient not on hemodialysis. 2. Drug abuse. 3. Hypertension. Medications; reviewed. Allergies; as outlined above. Social history; positive for smoking and drug abuse. Family history; noncontributory. Occupational history; patient is on disability. Review of systems; denies any headache, seizures. Any shortness of breath. Chest pain. Coughing or wheezing. Denies any abdominal pain, nausea vomiting. Any fever or chills. Any melena or hematochezia. Denies any urinary symptoms. Any weight loss. General exam; middle-aged male, awake alert, currently in no distress. Past Medical History Medical History: hypertension, other Medications Current Medications IV Flush (NS 3 ml) 3 ml PER PROTOCOL IV ; Start 10/09/18 at 09:30 Naloxone HCl (Narcan) 0.4 mg Q3M PRN IV DECREASED REPIRATORY RATE; Start 10/09/18 at 09:30 Ondansetron HCl (Zofran Inj) 4 mg Q6H PRN IV NAUSEA AND/OR VOMITING; Start 10/09/18 at 09:30 Albuterol/ Ipratropium (Duoneb) 3 ml Q2H RESP THERAPY PRN NEB SHORTNESS OF BREATH; Start 10/09/18 at 09:30 Ipratropium [place] (Atrovent 0.02% (Neb)) 0.5 mg Q2H RESP THERAPY PRN NEB SHORTNESS OF BREATH; Start 10/09/18 at 09:30 Acetaminophen (Tylenol Liquid) 650 mg Q6H PRN PO PAIN LEVEL 1-3 OR FEVER; Start 10/09/18 at 09:30 Docusate Sodium (Colace) 100 mg Q12H PRN PO CONSTIPATION; Start 10/09/18 at 09:30 Famotidine (Pepcid Iv) 20 mg Q12 IV Last administered on 10/10/18at 09:09; Admin Dose 20 MG; Start 10/09/18 at 09:30 Sodium Bicarbonate 150 meq/Dextrose 1,000 ml @ 100 mls/hr Q10H IV Last administered on 10/10/18 09:12; Admin Dose 100 MLS/HR; Start 10/09/18 at 11:00 Piperacillin Sod/ Tazobactam Sod 100 ml @ 200 mls/hr Q8H IVPB Last administered on 10/10/18 09:09; Admin Dose 200 MLS/HR; Start 10/09/18 at 10:00 Vancomycin HCl (Vanco Iv Per Pharmacy) VANCOMYCIN PER PHARMACY PER PROTOCOL XX ; Start 10/09/18 at 09:30 Heparin Sodium (Porcine) (Heparin (5000 Units/1ml)) 5,000 unit BID SC Last administered on 10/10/18at 09:12; Admin Dose 5,000 UNIT; Start 10/09/18 at 21:00 Diagnostic Test (Pha) (Accu-Chek) 1 ea 02 XX Last administered on 10/10/18at 02:00; Admin Dose 1 EA; Start 10/10/18 at 02:00 Vancomycin HCl 1.75 gm/Sodium Chloride 500 ml @ 125 mls/hr Q36H IVPB ; Start 10/11/18 at 00:00 Haloperidol (Haldol) 1 mg Q2 PRN IV AGITATION/ANXIETY Last administered on at 04:00; Admin Dose 1 MG; Start 10/09/18 at 19:30 Allergies: Coded Allergies: aripiprazole (Verified Adverse Reaction, Severe, CONFUSION,GETTING CRAZY, 10/09/18) Past Surgical History Past Surgical Hx: other (Laminectomy ) Social History Alcohol Use: none Smoking Status: Current every day smoker Drug Use: none Exam/Review of Systems Vital Signs Vitals Vital Signs Date Temp Pulse Resp B/P (MAP) Pulse Ox O2 O2 Flow FiO2 Time Delivery Rate 10/10/18 105 08:00 10/10/18 18 147/94 91 Nasal 08:00 (111) Cannula 10/10/18 98.3 07:00 10/09/18 6.0 23:35 10/09/18 100 23:05 Intake and Output 10/09/18 10/09/18 10/10/18 1515:00 23:00 07:00 IntakeIntake Total 1020 ml OutputOutput Total 325 ml BalanceBalance 695 ml Exam HEENT exam; supple neck, no JVD. No lymphadenopathy. Midline trachea. No thyromegaly. Patient has fair dentition. Chest exam; clear to auscultation. S1-S2 audible, no murmurs. Regular rhythm. Abdomen exam; soft, no organomegaly. Bowel sounds audible. Extremity exam; no edema clubbing. Pulses 2+. [employer] exam; no focal deficit. Medications Medications Current Medications IV Flush (NS 3 ml) 3 ml PER PROTOCOL IV ; Start 10/09/18 at 09:30 Naloxone HCl (Narcan) 0.4 mg Q3M PRN IV DECREASED REPIRATORY RATE; Start 10/09/18 at 09:30 Ondansetron HCl (Zofran Inj) 4 mg Q6H PRN IV NAUSEA AND/OR VOMITING; Start 10/09/18 at 09:30 Albuterol/ Ipratropium (Duoneb) 3 ml Q2H RESP THERAPY PRN NEB SHORTNESS OF BREATH; Start 10/09/18 at 09:30 Ipratropium [place] (Atrovent 0.02% (Neb)) 0.5 mg Q2H RESP THERAPY PRN NEB SHORTNESS OF BREATH; Start 10/09/18 at 09:30 Acetaminophen (Tylenol Liquid) 650 mg Q6H PRN PO PAIN LEVEL 1-3 OR FEVER; Start 10/09/18 at 09:30 Docusate Sodium (Colace) 100 mg Q12H PRN PO CONSTIPATION; Start 10/09/18 at 09:30 Famotidine (Pepcid Iv) 20 mg Q12 IV Last administered on 10/10/18at 09:09; Admin Dose 20 MG; Start 10/09/18 at 09:30 Sodium Bicarbonate 150 meq/Dextrose 1,000 ml @ 100 mls/hr Q10H IV Last administered on 10/10/18 09:12; Admin Dose 100 MLS/HR; Start 10/09/18 at 11:00 Piperacillin Sod/ Tazobactam Sod 100 ml @ 200 mls/hr Q8H IVPB Last administered on 10/10/18 09:09; Admin Dose 200 MLS/HR; Start 10/09/18 at 10:00 Vancomycin HCl (Vanco Iv Per Pharmacy) VANCOMYCIN PER PHARMACY PER PROTOCOL XX ; Start 10/09/18 at 09:30 Heparin Sodium (Porcine) (Heparin (5000 Units/1ml)) 5,000 unit BID SC Last administered on 10/10/18 09:12; Admin Dose 5,000 UNIT; Start 10/09/18 at 21:00 Diagnostic Test (Pha) (Accu-Chek) 1 ea 02 XX Last administered on 10/10/18at 02:00; Admin Dose 1 EA; Start 10/10/18 at 02:00 Vancomycin HCl 1.75 gm/Sodium Chloride 500 ml @ 125 mls/hr Q36H IVPB ; Start 10/11/18 at 00:00 Haloperidol (Haldol) 1 mg Q2 PRN IV AGITATION/ANXIETY Last administered on 10/10/18 04:00; Admin Dose 1 MG; Start 10/09/18 at 19:30 ZANE GORDON Oct 10, 2018 09:35
--- NOTE | 2018-10-10 10:04 | CONS ---
Date/Time of Note Date/Time of Note DATE: 10/10/18 TIME: 10:04 Assessment/Plan Assessment/Plan Assessment/Plan 1. Acute Kidney injury due to ATN from Acute rhabdomyolysis 2. Acute Rhabdomyolysis 3. Acute hyperkalemia due to RILEY 4. Metabolic acidosis 5. H/o HTN 6. H/o Anxiety 7. H/o Polysubstance abuse 8. H/o Chronic back pain with h/o L5-S1 laminectomy Plan: CK total improving, On Bicarbonate drip, decrease rate to 75 cc/hr, pt is still confused K improved to normal to normal,adequate urine output, BUN/Cr 62/3.86, monitor Cr and Electrolytes Abdominal US showed Right length (cm) : 10.6, Left length (cm) : 11.0, no Hydronephrosis will follow up Result Diagram: [id number]/10/1851110/[id number] Results 24hrs Laboratory Tests Test 10/09/18 11:07 10/09/18 15:23 10/09/18 15:52 10/09/18 16:14 Sodium Level 141 Potassium Level 5.0 # Chloride Level 107 Carbon Dioxide 21 Level Anion Gap 13 # Blood Urea 47 H Nitrogen Creatinine 2.90 H Est Glomerular 23 L Filtrat Rate mL/min Glucose Level 133 Lactic Acid Level 4.9 *H Calcium Level 7.7 L Total Bilirubin 0.1 L Direct Bilirubin 0.00 Indirect Bilirubin 0.1 Aspartate Amino 927 H Transf (AST/SGOT) Alanine 383 H Aminotransferase ( ALT/SGPT) Alkaline 55 Phosphatase Total Protein 7.1 # Albumin 3.8 # Globulin 3.30 H Albumin/Globulin 1.15 Ratio Bedside Glucose 71 78 190 Test 10/09/18 18:58 10/10/18 00:41 10/10/18 02:56 10/10/18 05:12 Urine Color OLIVERIO Urine Clarity CLOUDY A Urine pH 5.0 Urine Specific 1.024 [place] Urine Ketones NEGATIVE Urine Nitrite NEGATIVE Urine Bilirubin NEGATIVE Urine Urobilinogen NEGATIVE Urine Leukocyte NEGATIVE Esterase Urine Microscopic 86 H RBC Urine Microscopic 11 H WBC Urine Calcium MODERATE Oxalate Crystals Urine Bacteria FEW A Urine Granular FEW A Casts Urine Mucus MODERATE Urine Eosinophils 0.0 % Urine Hemoglobin 3+ H Urine Random 175.76 Creatinine Urine Random 153 H Sodium Urine 0.42 Protein/Creatinine Ratio Urine Glucose NEGATIVE Urine Total 75.0 H Protein Sodium Level 140 138 Potassium Level 4.4 4.5 Chloride Level 109 105 Carbon Dioxide 21 21 Level Anion Gap 10 12 Blood Urea 55 H 62 H Nitrogen Creatinine 3.47 H 3.86 H Est Glomerular 18 L 16 L Filtrat Rate mL/min Glucose Level 103 101 Calcium Level 7.3 L 7.0 L Blood Gas Specimen Blood arterial Source Arterial Blood 10/10/2018 1:25:21 Date Drawn AM Arterial Blood pH 7.358 (Temp corrected) Arterial Blood 37.0 pCO2 (Temp correct) Arterial Blood pO2 90.9 (Temp corrected) Arterial Blood 20.3 L HCO3 Arterial Blood -4.5 L Base Excess Arterial Blood 97.4 Oxygen Saturation Pedro Test ACCEPTAB Arterial Blood Gas Right Radial Puncture Site Arterial 0.2 Blood Carboxyhemog lobin Arterial Blood 0.5 Methemoglobin Blood Gas A-a O2 585.1 H Differential Oxyhemoglobin 96.7 Percent Blood Gas 37.0 Temperature Blood Gas 14.0 Respiration Rate Blood Gas Actual 4 Respiration Rate Blood Gas Modality MASK - BIPAP FiO2 100.0 Blood Gas 15/5 IPAP/EPAP Ratio Blood Gas Critical C Lecaros Value Read Back Blood Gas Notified Braulio Whom Blood Gas Notified 10/10/2018 1:51:03 Time AM Bedside Glucose 111 White Blood Count 14.9 #H Red Blood Count 4.22 #L Hemoglobin 13.6 #L Hematocrit 40.1 #L Mean Corpuscular 95.0 Volume Mean Corpuscular 32.2 Hemoglobin Mean Corpuscular 33.9 Hemoglobin Concent Red Cell 13.4 Distribution Width Platelet Count 196 # Mean Platelet 10.8 H Volume Immature 1.700 H Granulocytes % Neutrophils % Segmented 36 L Neutrophils % (Manual) Band Neutrophils % 46 H (Manual) Lymphocytes % Lymphocytes % 4 L (Manual) Reactive 2 H Lymphocytes % (Manual) Monocytes % Monocytes % 4 (Manual) Eosinophils % Basophils % Metamyelocytes % 5 H (manual) Myelocytes % 3 H (Manual) Nucleated Red 0.0 Blood Cells % Immature 0.260 H Granulocytes # Neutrophils # Neutrophils # 6.4 (Manual) Band Neutrophils # 6.8 H Lymphocytes 0.5 L (Manual) Lymphocytes # Reactive 0.2 H Lymphocytes # Monocytes # Monocytes # 0.5 (Manual) Eosinophils # Basophils # Metamyelocytes # 0.7 H Myelocytes # 0.4 H Nucleated Red Blood Cells # Platelet Estimate NORMAL Poikilocytosis 1+ Anisocytosis 1+ Prothrombin Time 21.2 H Prothrombin Time 1.7 Ratio INR International 1.82 Normalized Ratio Activated 43.[address] Time Uric Acid 10.6 H Magnesium Level 1.6 L Total Bilirubin 0.3 Direct Bilirubin 0.00 Indirect Bilirubin 0.3 Aspartate Amino 718 H Transf (AST/SGOT) Alanine 309 H Aminotransferase ( ALT/SGPT) Alkaline 48 Phosphatase Creatine Kinase 85866 #H Total Protein 5.7 #L Albumin 3.0 L Globulin 2.70 Albumin/Globulin 1.11 Ratio Consultation Date/Type/Reason Admit Date/Time Oct 09, 2018 at 08:44 Initial Consult Date 10/10/18 Type of Consult NEPHROLOGY Requesting Provider: JERAD HUTR MD Exam/Review of Systems Vital Signs Vitals Vital Signs Date Temp Pulse Resp B/P (MAP) Pulse Ox O2 O2 Flow FiO2 Time Delivery Rate 10/10/18 105 08:00 10/10/18 18 147/94 91 Nasal 08:00 (111) Cannula 10/10/18 98.3 07:00 10/09/18 6.0 23:35 10/09/18 100 23:05 Intake and Output 10/09/18 10/09/18 10/10/18 1515:00 23:00 07:00 IntakeIntake Total 1020 ml OutputOutput Total 325 ml BalanceBalance 695 ml Exam Constitutional: alert, but confused Respiratory: clear to auscultation, congested cough, diminished breath sounds Cardiovascular: regular rate and rhythm, nl pulses Gastrointestinal: soft, non-tender Musculoskeletal: nl extremities to inspection, nl gait and stance Neurological: confused lethargic Medications Medications Current Medications IV Flush (NS 3 ml) 3 ml PER PROTOCOL IV ; Start 10/09/18 at 09:30 Naloxone HCl (Narcan) 0.4 mg Q3M PRN IV DECREASED REPIRATORY RATE; Start 10/09/18 at 09:30 Ondansetron HCl (Zofran Inj) 4 mg Q6H PRN IV NAUSEA AND/OR VOMITING; Start 10/09/18 at 09:30 Albuterol/ Ipratropium (Duoneb) 3 ml Q2H RESP THERAPY PRN NEB SHORTNESS OF BREATH; Start 10/09/18 at 09:30 Ipratropium [place] (Atrovent 0.02% (Neb)) 0.5 mg Q2H RESP THERAPY PRN NEB SHORTNESS OF BREATH; Start 10/09/18 at 09:30 Acetaminophen (Tylenol Liquid) 650 mg Q6H PRN PO PAIN LEVEL 1-3 OR FEVER; Start 10/09/18 at 09:30 Docusate Sodium (Colace) 100 mg Q12H PRN PO CONSTIPATION; Start 10/09/18 at 09:30 Famotidine (Pepcid Iv) 20 mg Q12 IV Last administered on 10/10/18 09:09; Admin Dose 20 MG; Start 10/09/18 at 09:30 Sodium Bicarbonate 150 meq/Dextrose 1,000 ml @ 100 mls/hr Q10H IV Last administered on 10/10/18 09:12; Admin Dose 100 MLS/HR; Start 10/09/18 at 11:00 Piperacillin Sod/ Tazobactam Sod 100 ml @ 200 mls/hr Q8H IVPB Last administered on 10/10/18 09:09; Admin Dose 200 MLS/HR; Start 10/09/18 at 10:00 Vancomycin HCl (Vanco Iv Per Pharmacy) VANCOMYCIN PER PHARMACY PER PROTOCOL XX ; Start 10/09/18 at 09:30 Heparin Sodium (Porcine) (Heparin (5000 Units/1ml)) 5,000 unit BID SC Last administered on 10/10/18 09:12; Admin Dose 5,000 UNIT; Start 10/09/18 at 21:00 Diagnostic Test (Pha) (Accu-Chek) 1 ea 02 XX Last administered on 10/10/18 02:00; Admin Dose 1 EA; Start 10/10/18 at 02:00 Vancomycin HCl 1.75 gm/Sodium Chloride 500 ml @ 125 mls/hr Q36H IVPB ; Start 10/11/18 at 00:00 Haloperidol (Haldol) 1 mg Q2 PRN IV AGITATION/ANXIETY Last administered on 10/10/18 04:00; Admin Dose 1 MG; Start 10/09/18 at 19:30 ROYA COOL MD Oct 10, 2018 10:04
[2018-10-10] MEDS ORDERED: MAGNESIUM SULFATE 2 GM/50 ML 50 ML IVPB STA (10:22)
[2018-10-10] MEDS: ALLOPURINOL 100 MG TAB PO SCH (11:03)
--- NOTE | 2018-10-10 12:01 | CONS ---
Date/Time of Note Date/Time of Note DATE: 10/10/18 TIME: 12:00 Assessment/Plan Assessment/Plan Hospital Course Patient is lethargic, arousable in no distress no fevers overnight. Temperature 98.3 pulse 104 respirations 20 blood pressure 153/85 saturation 91% on 4 L WBC 14.9 H&H 13.6 and 40.1 platelets 196 bands 46 BUN 62 creatinine 3.86 Microbiology: Blood cultures remain negative Diagnostics chest x-ray yesterday revealed interval increase left lateral upper lobe reticular interstitial density concerning for early acute infiltrate Indwelling's: Spencer catheter and peripheral IV Antimicrobials: Vancomycin and Zosyn Physical examination: Well-nourished well-developed middle-aged man in no distress. Head atraumatic normocephalic sclera nonicteric. Neck is supple chest rise symmetrical breath sounds diminished bases. Heart: S1-S2. Abdomen soft bowel sounds present. Extremities without cyanosis. Skin was multiple tattoos all over the body Assessment: 1. Acute encephalopathy, resolving 2. Acute hypoxemic respiratory failure, possibly aspirated 3. Status post L1-S1 laminectomies from evacuation of an epidural abscess on 05/20/2016. 4. Polysubstance abuse 5. Acute kidney failure secondary to acute rhabdo myelosis Plan: Patient is stable, we will will discontinue vancomycin, keep him on Zosyn, monitor chest x-ray, follow pulmonary and renal recommendations Result Diagram: 10/10/18 0512 10/10/18 0512 Results 24hrs Laboratory Tests Test 10/09/18 15:23 10/09/18 15:52 10/09/18 16:14 10/09/18 18:58 Bedside Glucose 71 78 190 Urine Color OLIVERIO Urine Clarity CLOUDY A Urine pH 5.0 Urine Specific 1.024 [place] Urine Ketones NEGATIVE Urine Nitrite NEGATIVE Urine Bilirubin NEGATIVE Urine Urobilinogen NEGATIVE Urine Leukocyte NEGATIVE Esterase Urine Microscopic 86 H RBC Urine Microscopic 11 H WBC Urine Calcium MODERATE Oxalate Crystals Urine Bacteria FEW A Urine Granular FEW A Casts Urine Mucus MODERATE Urine Eosinophils 0.0 % Urine Hemoglobin 3+ H Urine Random 175.76 Creatinine Urine Random 153 H Sodium Urine 0.42 Protein/Creatinine Ratio Urine Glucose NEGATIVE Urine Total 75.0 H Protein Sodium Level 140 Potassium Level 4.4 Chloride Level 109 Carbon Dioxide 21 Level Anion Gap 10 Blood Urea 55 H Nitrogen Creatinine 3.47 H Est Glomerular 18 L Filtrat Rate mL/min Glucose Level 103 Calcium Level 7.3 L Test 10/10/18 00:41 10/10/18 02:56 10/10/18 05:12 Blood Gas Specimen Blood arterial Source Arterial Blood 10/10/2018 1:25:21 Date Drawn AM Arterial Blood pH 7.358 (Temp corrected) Arterial Blood 37.0 pCO2 (Temp correct) Arterial Blood pO2 90.9 (Temp corrected) Arterial Blood 20.3 L HCO3 Arterial Blood -4.5 L Base Excess Arterial Blood 97.4 Oxygen Saturation Pedro Test ACCEPTAB Arterial Blood Gas Right Radial Puncture Site Arterial 0.2 Blood Carboxyhemog lobin Arterial Blood 0.5 Methemoglobin Blood Gas A-a O2 585.1 H Differential Oxyhemoglobin 96.7 Percent Blood Gas 37.0 Temperature Blood Gas 14.0 Respiration Rate Blood Gas Actual 4 Respiration Rate Blood Gas Modality MASK - BIPAP FiO2 100.0 Blood Gas 15/5 IPAP/EPAP Ratio Blood Gas Critical C Lecaros Value Read Back Blood Gas Notified Braulio Whom Blood Gas Notified 10/10/2018 1:51:03 Time AM Bedside Glucose 111 White Blood Count 14.9 #H Red Blood Count 4.22 #L Hemoglobin 13.6 #L Hematocrit 40.1 #L Mean Corpuscular 95.0 Volume Mean Corpuscular 32.2 Hemoglobin Mean Corpuscular 33.9 Hemoglobin Concent Red Cell 13.4 Distribution Width Platelet Count 196 # Mean Platelet 10.8 H Volume Immature 1.700 H Granulocytes % Neutrophils % Segmented 36 L Neutrophils % (Manual) Band Neutrophils % 46 H (Manual) Lymphocytes % Lymphocytes % 4 L (Manual) Reactive 2 H Lymphocytes % (Manual) Monocytes % Monocytes % 4 (Manual) Eosinophils % Basophils % Metamyelocytes % 5 H (manual) Myelocytes % 3 H (Manual) Nucleated Red 0.0 Blood Cells % Immature 0.260 H Granulocytes # Neutrophils # Neutrophils # 6.4 (Manual) Band Neutrophils # 6.8 H Lymphocytes 0.5 L (Manual) Lymphocytes # Reactive 0.2 H Lymphocytes # Monocytes # Monocytes # 0.5 (Manual) Eosinophils # Basophils # Metamyelocytes # 0.7 H Myelocytes # 0.4 H Nucleated Red Blood Cells # Platelet Estimate NORMAL Poikilocytosis 1+ Anisocytosis 1+ Prothrombin Time 21.2 H Prothrombin Time 1.7 Ratio INR International 1.82 Normalized Ratio Activated 43.[address] Time Sodium Level 138 Potassium Level 4.5 Chloride Level 105 Carbon Dioxide 21 Level Anion Gap 12 Blood Urea 62 H Nitrogen Creatinine 3.86 H Est Glomerular 16 L Filtrat Rate mL/min Glucose Level 101 Uric Acid 10.6 H Calcium Level 7.0 L Magnesium Level 1.6 L Total Bilirubin 0.3 Direct Bilirubin 0.00 Indirect Bilirubin 0.3 Aspartate Amino 718 H Transf (AST/SGOT) Alanine 309 H Aminotransferase ( ALT/SGPT) Alkaline 48 Phosphatase Creatine Kinase 02071 #H Total Protein 5.7 #L Albumin 3.0 L Globulin 2.70 Albumin/Globulin 1.11 Ratio Consultation Date/Type/Reason Admit Date/Time Oct 09, 2018 at 08:44 Initial Consult Date 10/10/18 Type of Consult id Requesting Provider: JERAD HURT MD Exam/Review of Systems Vital Signs Vitals Vital Signs Date Temp Pulse Resp B/P (MAP) Pulse Ox O2 O2 Flow FiO2 Time Delivery Rate 10/10/18 Nasal 4.0 08:00 Cannula 10/10/18 105 08:00 10/10/18 18 147/94 91 08:00 (111) 10/10/18 98.3 07:00 10/09/18 100 23:05 Intake and Output 10/09/18 10/09/18 10/10/18 1515:00 23:00 07:00 IntakeIntake Total 1020 ml OutputOutput Total 362 ml BalanceBalance 658 ml Medications Medications Current Medications IV Flush (NS 3 ml) 3 ml PER PROTOCOL IV ; Start 10/09/18 at 09:30 Naloxone HCl (Narcan) 0.4 mg Q3M PRN IV DECREASED REPIRATORY RATE; Start 10/09/18 at 09:30 Ondansetron HCl (Zofran Inj) 4 mg Q6H PRN IV NAUSEA AND/OR VOMITING Last administered on 10/10/18at 10:27; Admin Dose 4 MG; Start 10/09/18 at 09:30 Albuterol/ Ipratropium (Duoneb) 3 ml Q2H RESP THERAPY PRN NEB SHORTNESS OF BREATH; Start 10/09/18 at 09:30 Ipratropium [place] (Atrovent 0.02% (Neb)) 0.5 mg Q2H RESP THERAPY PRN NEB SHORTNESS OF BREATH; Start 10/09/18 at 09:30 Acetaminophen (Tylenol Liquid) 650 mg Q6H PRN PO PAIN LEVEL 1-3 OR FEVER; Start 10/09/18 at 09:30 Docusate Sodium (Colace) 100 mg Q12H PRN PO CONSTIPATION; Start 10/09/18 at 09:30 Famotidine (Pepcid Iv) 20 mg Q12 IV Last administered on 10/10/18 09:09; Admin Dose 20 MG; Start 10/09/18 at 09:30 Sodium Bicarbonate 150 meq/Dextrose 1,000 ml @ 75 mls/hr [id number] IV Last administered on 10/10/18 09:12; Admin Dose 100 MLS/HR; Start 10/09/18 at 11:00 Piperacillin Sod/ Tazobactam Sod 100 ml @ 200 mls/hr Q8H IVPB Last adminis tered on 10/10/18 09:09; Admin Dose 200 MLS/HR; Start 10/09/18 at 10:00 Vancomycin HCl (Vanco Iv Per Pharmacy) VANCOMYCIN PER PHARMACY PER PROTOCOL XX ; Start 10/09/18 at 09:30 Heparin Sodium (Porcine) (Heparin (5000 Units/1ml)) 5,000 unit BID SC Last administered on 10/10/18 09:12; Admin Dose 5,000 UNIT; Start 10/09/18 at 21:00 Diagnostic Test (Pha) (Accu-Chek) 1 ea 02 XX Last administered on 10/10/18at 02:00; Admin Dose 1 EA; Start 10/10/18 at 02:00 Vancomycin HCl 1.75 gm/Sodium Chloride 500 ml @ 125 mls/hr Q36H IVPB ; Start 10/11/18 at 00:00 Haloperidol (Haldol) 1 mg Q2 PRN IV AGITATION/ANXIETY Last administered on 10/10/18 10:28; Admin Dose 1 MG; Start 10/09/18 at 19:30 Magnesium Sulfate 50 ml @ 25 mls/hr ONCE STAT IVPB Last administered on 10/10/18 11:00; Admin Dose 25 MLS/HR; Start 10/10/18 at 10:22; Stop 10/10/18 at 12:21 Allopurinol (Zyloprim) 100 mg DAILY PO Last administered on 10/10/18 11:03; Admin Dose 100 MG; Start 10/10/18 at 10:30 DAVE BOWEN NP Oct 10, 2018 12:00
[2018-10-10] MEDS: LISINOPRIL 20 MG TAB PO SCH (23:21)
[2018-10-11] VITALS (9 sets, daily range): BP systolic 121–149; BP diastolic 59–108; PULSE 77–117; RESP 14–21
[2018-10-11] MEDS ORDERED: VANCOMYCIN 1.75 GM in SOD CHLORIDE 0.9% 500 ML IVPB SCH ×4
[2018-10-11] MEDS: DILTIAZEM 60 MG TAB PO SCH ×3 (00:38→12:54)
[2018-10-11] MEDS: METOPROLOL 50 MG TAB PO SCH ×3 (00:38→12:53)
[2018-10-11] MEDS: METOCLOPRAMIDE (1 MG/ML) 10 ML CUP PO SCH ×3 (00:39→12:54)
[2018-10-11] MEDS: PIPER-TAZO 3.375 GM IV (PMX) 100 ML IVPB SCH ×2 (01:29→10:27)
[2018-10-11] MEDS: ACCU-CHEK XX SCH (01:33)
[2018-10-11] MEDS: SODIUM BICARBONATE (IV ADD) 150 MEQ in DEXTROSE 5% 1,000 ML IV SCH (03:29)
[2018-10-11] MEDS: HALOPERIDOL 5 MG INJ IV PRN ×2 (05:50→08:35)
--- NOTE | 2018-10-11 07:41 | PN ---
DATE: 10/10/2018 SUBJECTIVE: The patient is more alert and responsive. No new complaints. OBJECTIVE: VITAL SIGNS: Stable. He is afebrile. HEENT: Extraocular muscles are intact. Pupils are equal, reactive to light bilaterally. Sclerae ar e anicteric. Oropharynx is clear and moist. NECK: Supple. No JVD, no carotid bruits. CHEST: Mild rhonchi. CARDIAC: Regular rate and rhythm. No murmurs or gallops. ABDOMEN: Soft, nontender, nondistended. Normoactive bowel sounds. EXTREMITIES: No clubbing, cyanosis or edema. NEUROLOGICAL: Grossly nonfocal. LABORATORY DATA: WBC 14.9, hemoglobin 13.6, platelets 196,000. BMP showed a BUN of 52 and creatinin e of 3.86. Magnesium is low at 1.6. CPK is down to 27,983. ASSESSMENT AND PLAN: 1. A 53-year-old male with altered mental status secondary to methamphetamine overdose, improved. 2. Rhabdomyolysis, improving. 3. Acute hypoxemic respiratory failure, improving. 4. Acute kidney injury. 5. Hyperkalemia, resolved. 6. History of hepatitis B and hepatitis C. 7. Hypomagnesemia. PLAN: 1. Transfer to telemetry. 2. Continue IV fluid hydration. 3. Continue to monitor kidney function and CPK level. 4. The case was discussed with Dr. Roya Cool. 5. Pulmonary and renal followup is appreciated. Dictated By: MIGUEL PRITCHARD/NTS Conf#: [id number] DID#: [id number] CC: JERAD HURT MD; ROYA COOL MD;*End*
[2018-10-11] MEDS: LISINOPRIL 20 MG TAB PO SCH (08:38)
[2018-10-11] MEDS: ALLOPURINOL 100 MG TAB PO SCH (08:38)
[2018-10-11] MEDS: HEPARIN 5,000 UNIT/1 ML VIAL SC SCH (08:47)
[2018-10-11] MEDS ORDERED: ASPIRIN (EC) 325 MG TAB PO SCH (09:00)
[2018-10-11] MEDS ORDERED: QUETIAPINE 25 MG TAB PO SCH (09:00)
[2018-10-11] MEDS ORDERED: TIOTROPIUM 18 MCG CAPSULE INHA DEV INH SCH (09:00)
[2018-10-11] MEDS ORDERED: HEPA50002 SC (10:39)
[2018-10-11] MEDS ORDERED: Ipratropium 0.02% (Neb) NEB (10:39)
[2018-10-11] MEDS ORDERED: ACET650S25 PO (10:39)
[2018-10-11] MEDS ORDERED: ALLO100T PO (10:39)
--- NOTE | 2018-10-11 10:46 | CONS ---
Date/Time of Note Date/Time of Note DATE: 10/11/18 TIME: 10:44 Assessment/Plan Assessment/Plan Assessment/Plan Assessment recommendations; 1. Patient admitted with acute respiratory failure due to drug overdose, patient did very well on BiPAP and now has been weaned down to nasal cannula with stable cardiopulmonary status. 2. Chronic renal insufficiency. 3. Improving thrombocytopenia. 4. Leukocytosis of unknown etiology however patient responding well to current treatment regimen. On appropriate empirical antibiotic regimen. 5. Underlying COPD. Continue current supportive care. Monitor renal function. Result Diagram: 10/10/1812 10/10/18 0512 Results 24hrs Laboratory Tests Test 10/11/18 01:33 10/11/18 05:12 Bedside Glucose 109 Random Vancomycin Level 8.9 Consultation Date/Type/Reason Admit Date/Time Oct 09, 2018 at 08:44 Initial Consult Date 10/10/18 Type of Consult Pulmonary/critical care History of presenting illness; Patient is a 53-year-old male who was brought into the hospital because of altered mental status. Patient apparently had taken some drugs including am phetamines and benzodiazepines and was in hypercapnic respiratory failure. However the patient did not require intubation and did very well on BiPAP and by the time I saw him patient is completely awake and alert and was responsive appropriately. He denies any shortness of breath, chest pain, abdominal pain, nausea vomiting or fever. Past medical history; 1. Apparent chronic renal insufficiency. Patient not on hemodialysis. 2. Drug abuse. 3. Hypertension. Medications; reviewed. Allergies; as outlined above. Social history; positive for smoking and drug abuse. Family history; noncontributory. Occupational history; patient is on disability. Review of systems; denies any headache, seizures. Any shortness of breath. Chest pain. Coughing or wheezing. Denies any abdominal pain, nausea vomiting. Any fever or chills. Any melena or hematochezia. Denies any urinary symptoms. Any weight loss. General exam; middle-aged male, awake alert, currently in no distress. Requesting Provider: JERAD HURT MD 24 HR Interval Summary Free Text/Dictation Patient's condition is stable. Has been transferred out of ICU to telemetry unit. Patient has remained hemodynamically stable. Patient occasionally exhibiting agitation requiring intermittent sedation. General exam; young male, currently no distress. Exam/Review of Systems Vital Signs Vitals Vital Signs Date Temp Pulse Resp B/P (MAP) Pulse Ox O2 O2 Flow FiO2 Time Delivery Rate 10/11/18 77 08:15 10/11/18 98.4 20 127/80 92 07:34 (96) 10/11/18 Nasal 4.0 00:53 Cannula 10/09/18 100 23:05 Intake and Output 10/10/18 10/10/18 10/11/18 1414:59 22:59 06:59 IntakeIntake Total 950 ml 490 ml 370 ml OutputOutput Total 414 ml 450 ml 300 ml BalanceBalance 536 ml 40 ml 70 ml Exam HEENT exam; supple neck, no JVD. No lymphadenopathy. Midline trachea. No thyromegaly. Patient has fair dentition. No neck masses. Chest exam; clear to auscultation. S1-S2 audible, no murmurs. Regular rhythm. Abdomen exam; soft, no organomegaly. Bowel sounds audible. Extremity exam; no peripheral edema clubbing. DIRECTOR PLANS exam; no focal deficit. Medications Medications Current Medications IV Flush (NS 3 ml) 3 ml PER PROTOCOL IV ; Start 10/09/18 at 09:30 Naloxone HCl (Narcan) 0.4 mg Q3M PRN IV DECREASED REPIRATORY RATE; Start 10/09/18 at 09:30 Ondansetron HCl (Zofran Inj) 4 mg Q6H PRN IV NAUSEA AND/OR VOMITING Last administered on 10/10/18at 10:27; Admin Dose 4 MG; Start 10/09/18 at 09:30 Albuterol/ Ipratropium (Duoneb) 3 ml Q2H RESP THERAPY PRN NEB SHORTNESS OF BREATH; Start 10/09/18 at 09:30 Ipratropium [place] (Atrovent 0.02% (Neb)) 0.5 mg Q2H RESP THERAPY PRN NEB SHORTNESS OF BREATH; Start 10/09/18 at 09:30 Acetaminophen (Tylenol Liquid) 650 mg Q6H PRN PO PAIN LEVEL 1-3 OR FEVER; Start 10/09/18 at 09:30 Docusate Sodium (Colace) 100 mg Q12H PRN PO CONSTIPATION; Start 10/09/18 at 09:30 Sodium Bicarbonate 150 meq/Dextrose 1,000 ml @ 75 mls/hr [id number] IV Last administered on 10/11/18at 03:29; Admin Dose 75 MLS/HR; Start 10/09/18 at 11:00 Piperacillin Sod/ Tazobactam Sod 100 ml @ 200 mls/hr Q8H IVPB Last administered on 10/11/18 10:27; Admin Dose 200 MLS/HR; Start 10/09/18 at 10:00 Vancomycin HCl (Vanco Iv Per Pharmacy) VANCOMYCIN PER PHARMACY PER PROTOCOL XX ; Start 10/09/18 at 09:30 Heparin Sodium (Porcine) (Heparin (5000 Units/1ml)) 5,000 unit BID SC Last administered on 10/11/18 08:47; Admin Dose 5,000 UNIT; Start 10/09/18 at 21:00 Diagnostic Test (Pha) (Accu-Chek) 1 ea 02 XX Last administered on 10/11/18 01:33; Admin Dose 1 EA; Start 10/10/18 at 02:00 Haloperidol (Haldol) 1 mg Q2 PRN IV AGITATION/ANXIETY Last administered on 10/11/18 08:35; Admin Dose 1 MG; Start 10/09/18 at 19:30 Allopurinol (Zyloprim) 100 mg DAILY PO Last administered on 10/11/18 08:38; Admin Dose 100 MG; Start 10/10/18 at 10:30 Aspirin (Ecotrin) 325 mg DAILY PO Last administered on 10/11/18 08:39; Admin D ose 325 MG; Start 10/11/18 at 09:00 Diltiazem HCl (Cardizem) 60 mg QID PO Last administered on 10/11/18 08:38; Admin Dose 60 MG; Start 10/10/18 at 23:00 Lisinopril (Zestril) 20 mg BID PO Last administered on 10/11/18 08:38; Admin Dose 20 MG; Start 10/10/18 at 23:00 Metoclopramide HCl (Reglan Liq) 10 mg Q6 PO Last administered on 10/11/18 05:53; Admin Dose 10 MG; Start 10/11/18 at 00:00 Metoprolol Tartrate (Lopressor) 50 mg Q6 PO Last administered on 10/11/18 05:52; Admin Dose 50 MG; Start 10/11/18 at 00:00 Quetiapine Fumarate (Seroquel) 50 mg BID PO Last administered on 10/11/18at 08:37; Admin Dose 50 MG; Start 10/11/18 at 09:00 Tiotropium [place] (Spiriva) 1 inh DAILY INH Last administered on 10/11/18at 08:38; Admin Dose 1 INH; Start 10/11/18 at 09:00 ZANE GORDON Oct 11, 2018 10:46
--- NOTE | 2018-10-11 10:59 | CONS ---
Date/Time of Note Date/Time of Note DATE: 10/11/18 TIME: 10:55 Assessment/Plan Assessment/Plan Assessment/Plan 1. Acute Kidney injury due to ATN from Acute rhabdomyolysis 2. Acute Rhabdomyolysis 3. Acute hyperkalemia due to RILEY 4. Metabolic acidosis 5. H/o HTN 6. H/o Anxiety 7. H/o Polysubstance abuse 8. H/o Chronic back pain with h/o L5-S1 laminectomy 9. Hypocalcemia due to HCo3 drip Plan: CK total improving, BUN/Cr 71/3.4, K 3.2- KCL 20mEQ IV x 1 replacement, d/c bicarbonate drip, start IVF NS at 75 cc/hr monitor Ca, low ca is due to Hco3 drip it will improve once drip is stopped Abdominal US showed Right length (cm) : 10.6, Left length (cm) : 11.0, no Hydronephrosis will follow up Result Diagram: 10/10/18 0512 10/11/18 1010 Results 24hrs Laboratory Tests Test 10/11/18 01:33 10/11/18 05:12 10/11/18 10:10 Bedside Glucose 109 Random Vancomycin Level 8.9 Sodium Level 137 Potassium Level 3.2 L Chloride Level 98 Carbon Dioxide Level 31 # Anion Gap 8 Blood Urea Nitrogen 71 H Creatinine 3.40 H Est Glomerular Filtrat Rate mL/min 19 L Glucose Level 101 Calcium Level 6.8 L Consultation Date/Type/Reason Admit Date/Time Oct 09, 2018 at 08:44 Initial Consult Date 10/10/18 Type of Consult NEPHROLOGY Requesting Provider: JERAD HURT MD Exam/Review of Systems Vital Signs Vitals Vital Signs Date Temp Pulse Resp B/P (MAP) Pulse Ox O2 O2 Flow FiO2 Time Delivery Rate 10/11/18 77 08:15 10/11/18 98.4 20 127/80 92 07:34 (96) 10/11/18 Nasal 4.0 00:53 Cannula 10/09/18 100 23:05 Intake and Output 10/10/18 10/10/18 10/11/18 1414:59 22:59 06:59 IntakeIntake Total 950 ml 490 ml 370 ml OutputOutput Total 414 ml 450 ml 300 ml BalanceBalance 536 ml 40 ml 70 ml Exam Constitutional: alert awake Respiratory: clear to auscultation, congested cough, diminished breath sounds Cardiovascular: regular rate and rhythm, nl pulses Gastrointestinal: soft, non-tender Musculoskeletal: nl extremities to inspection, nl gait and stance Neurological: non focal, alert awake Medications Medications Current Medications IV Flush (NS 3 ml) 3 ml PER PROTOCOL IV ; Start 10/09/18 at 09:30 Naloxone HCl (Narcan) 0.4 mg Q3M PRN IV DECREASED REPIRATORY RATE; Start 10/09/18 at 09:30 Ondansetron HCl (Zofran Inj) 4 mg Q6H PRN IV NAUSEA AND/OR VOMITING Last administered on 10/10/18at 10:27; Admin Dose 4 MG; Start 10/09/18 at 09:30 Albuterol/ Ipratropium (Duoneb) 3 ml Q2H RESP THERAPY PRN NEB SHORTNESS OF BREATH; Start 10/09/18 at 09:30 Ipratropium [place] (Atrovent 0.02% (Neb)) 0.5 mg Q2H RESP THERAPY PRN NEB SHORTNESS OF BREATH; Start 10/09/18 at 09:30 Acetaminophen (Tylenol Liquid) 650 mg Q6H PRN PO PAIN LEVEL 1-3 OR FEVER; Start 10/09/18 at 09:30 Docusate Sodium (Colace) 100 mg Q12H PRN PO CONSTIPATION; Start 10/09/18 at 09:30 Sodium Bicarbonate 150 meq/Dextrose 1,000 ml @ 75 mls/hr [id number] IV Last administered on 10/11/18at 03:29; Admin Dose 75 MLS/HR; Start 10/09/18 at 11:00 Piperacillin Sod/ Tazobactam Sod 100 ml @ 200 mls/hr Q8H IVPB Last administered on 10/11/18at 10:27; Admin Dose 200 MLS/HR; Start 10/09/18 at 10:00 Vancomycin HCl (Vanco Iv Per Pharmacy) VANCOMYCIN PER PHARMACY PER PROTOCOL XX ; Start 10/09/18 at 09:30 Heparin Sodium (Porcine) (Heparin (5000 Units/1ml)) 5,000 unit BID SC Last administered on 10/11/18at 08:47; Admin Dose 5,000 UNIT; Start 10/09/18 at 21:00 Diagnostic Test (Pha) (Accu-Chek) XX Last administered on 1/9/19at 01:33; Admin Dose 1 EA; Start 10/10/18 at 02:00 Haloperidol (Haldol) 1 mg Q2 PRN IV AGITATION/ANXIETY Last administered on 10/11/18 08:35; Admin Dose 1 MG; Start 10/09/18 at 19:30 Allopurinol (Zyloprim) 100 mg DAILY PO Last administered on 10/11/18 08:38; Admin Dose 100 MG; Start 10/10/18 at 10:30 Aspirin (Ecotrin) 325 mg DAILY PO Last administered on 10/11/18 08:39; Admin Dose 325 MG; Start 10/11/18 at 09:00 Diltiazem HCl (Cardizem) 60 mg QID PO Last administered on 10/11/18 08:38; Admin Dose 60 MG; Start 10/10/18 at 23:00 Lisinopril (Zestril) 20 mg BID PO Last administered on 10/11/18 08:38; Admin Dose 20 MG; Start 10/10/18 at 23:00 Metoclopramide HCl (Reglan Liq) 10 mg Q6 PO Last administered on 10/11/18 05:5 3; Admin Dose 10 MG; Start 10/11/18 at 00:00 Metoprolol Tartrate (Lopressor) 50 mg Q6 PO Last administered on 10/11/18 05:52; Admin Dose 50 MG; Start 10/11/18 at 00:00 Quetiapine Fumarate (Seroquel) 50 mg BID PO Last administered on 10/11/18 08:37; Admin Dose 50 MG; Start 10/11/18 at 09:00 Tiotropium [place] (Spiriva) 1 inh DAILY INH Last administered on 10/11/18 08:38; Admin Dose 1 INH; Start 10/11/18 at 09:00 ROYA COOL MD Oct 11, 2018 10:59
[2018-10-11] MEDS ORDERED: SOD CHLORIDE 0.9% 1,000 ML IV SCH (11:00)
[2018-10-11] MEDS ORDERED: POTASSIUM CHLORIDE 100 ML IVPB ONE (11:00)
--- NOTE | 2018-10-11 12:24 | DS ---
DATE OF ADMISSION: 10/09/2018 DATE OF DISCHARGE: DISCHARGE DIAGNOSES: 1. A 53-year-old male with altered mental status secondary to methamphetamine overdose. 2. Continuous methamphetamine abuse. 3. Rhabdomyolysis, clinically improving. 4. Acute hypoxemic respiratory failure, improved. 5. Hyperkalemia, resolved. 6. Acute kidney injury due to rhabdomyolysis. 7. History of hepatitis B, hepatitis C due to amphetamine injections. 8. Hypomagnesemia. HOSPITAL COURSE: A 53-year-old male that presented to ER with altered mental status. He was found t o have overdosed on methamphetamine. There was evidence of a significant rhabdomyolysis. Initial CP K was as high as 41,804. This improved during hospitalization. The patient also had evidence of lac tic acidosis, but there was no obvious source of infection or sepsis. Serum potassium was 7.3. This was corrected. Repeat potassium was 4.5 by the following day. The patient had evidence of acute ki dney injury. BUN was 62 and creatinine was 3.86. He was seen in consultation by Dr. Conner Cristina. Patient was transferred from ICU to telemetry. He was found to be agitated and confused. The patie nt received Haldol. A 1:1 sitter was assigned to him. At this point, the patient needs further hosp italization in an acute care setting. He was stable for transfer to [facility] for further ca re. Dr. Cristina will continue to follow him at that facility. Dictated By: MIGUEL PETERSON MD SK/NTS Conf#: [id number] DID#: [id number] CC: JERAD HURT MD;*EndCC*
--- NOTE | 2018-10-11 14:32 | CONS ---
Date/Time of Note Date/Time of Note DATE: 10/11/18 TIME: 14:31 Assessment/Plan Assessment/Plan Hospital Course Patient is sleeping status post Haldol he was awake alert in the morning he is in no distress no fevers overnight no labs this morning Microbiology: Blood cultures remain negative Diagnostics chest x-ray yesterday revealed interval increase left lateral upper lobe reticular interstitial density concerning for early acute infiltrate Indwelling's: Spencer catheter and peripheral IV Antimicrobials: Vancomycin and Zosyn Physical examination: Well-nourished well-developed middle-aged man in no distress. Head atraumatic normocephalic sclera nonicteric. Neck is supple chest rise symmetrical breath sounds diminished bases. Heart: S1-S2. Abdomen soft bowel sounds present. Extremities without cyanosis. Skin was multiple tattoos all over the body Assessment: 1. Acute encephalopathy, resolving 2. Acute hypoxemic respiratory failure, possibly aspirated 3. Status post L1-S1 laminectomies from evacuation of an epidural abscess on 05/20/2016. 4. Polysubstance abuse 5. Acute kidney failure secondary to acute rhabdo myelosis Plan: Patient is stable, we will will discontinue vancomycin, continue Zosyn, f/u chest x-ray in am Result Diagram: 10/10/18 0512 10/11/18 1010 Results 24hrs Laboratory Tests Test 10/11/18 01:33 10/11/18 05:12 10/11/18 10:10 10/11/18 11:55 Bedside Glucose 109 Random Vancomycin 8.9 Level Sodium Level 137 Potassium Level 3.2 L Chloride Level 98 Carbon Dioxide Level 31 # Anion Gap 8 Blood Urea Nitrogen 71 H Creatinine 3.40 H Est Glomerular 19 L Filtrat Rate mL/min Glucose Level 101 Calcium Level 6.8 L Creatine Kinase 00237 #H Creatine Kinase Index 0.2 Creatinine Kinase MB 19.90 H (Mass) Troponin I 1.060 *H Lab Scanned Report REFERENCE LAB Consultation Date/Type/Reason Admit Date/Time Oct 09, 2018 at 08:44 Initial Consult Date 10/10/18 Type of Consult id Requesting Provider: JERAD HURT MD Exam/Review of Systems Vital Signs Vitals Vital Signs Date Temp Pulse Resp B/P (MAP) Pulse Ox O2 O2 Flow FiO2 Time Delivery Rate 10/11/18 81 12:04 10/11/18 98.4 14 127/71 92 11:42 (89) 10/11/18 Nasal 4.0 00:53 Cannula 10/09/18 100 23:05 Intake and Output 10/10/18 10/10/18 10/11/18 1515:00 23:00 07:00 IntakeIntake Total 925 ml 465 ml 320 ml OutputOutput Total 457 ml 420 ml 250 ml BalanceBalance 468 ml 45 ml 70 ml Medications Medications Current Medications IV Flush (NS 3 ml) 3 ml PER PROTOCOL IV ; Start 10/09/18 at 09:30 Naloxone HCl (Narcan) 0.4 mg Q3M PRN IV DECREASED REPIRATORY RATE; Start 10/09/18 at 09:30 Ondansetron HCl (Zofran Inj) 4 mg Q6H PRN IV NAUSEA AND/OR VOMITING Last administered on 10/10/18at 10:27; Admin Dose 4 MG; Start 10/09/18 at 09:30 Albuterol/ Ipratropium (Duoneb) 3 ml Q2H RESP THERAPY PRN NEB SHORTNESS OF BREATH; Start 10/09/18 at 09:30 Ipratropium [place] (Atrovent 0.02% (Neb)) 0.5 mg Q2H RESP THERAPY PRN NEB SHORTNESS OF BREATH; Start 10/09/18 at 09:30 Acetaminophen (Tylenol Liquid) 650 mg Q6H PRN PO PAIN LEVEL 1-3 OR FEVER; Start 10/09/18 at 09:30 Docusate Sodium (Colace) 100 mg Q12H PRN PO CONSTIPATION; Start 10/09/18 at 09:30 Piperacillin Sod/ Tazobactam Sod 100 ml @ 200 mls/hr Q8H IVPB Last administered on 10/11/18at 10:27; Admin Dose 200 MLS/HR; Start 10/09/18 at 10:00 Vancomycin HCl (Vanco Iv Per Pharmacy) VANCOMYCIN PER PHARMACY PER PROTOCOL XX ; Start 10/09/18 at 09:30 Heparin Sodium (Porcine) (Heparin (5000 Units/1ml)) 5,000 unit BID SC Last administered on 10/11/18at 08:47; Admin Dose 5,000 UNIT; Start 10/09/18 at 21:00 Diagnostic Test (Pha) (Accu-Chek) 1 ea 02 XX Last administered on 10/11/18at 01:3 3; Admin Dose 1 EA; Start 10/10/18 at 02:00 Haloperidol (Haldol) 1 mg Q2 PRN IV AGITATION/ANXIETY Last administered on 10/11/18 08:35; Admin Dose 1 MG; Start 10/09/18 at 19:30 Allopurinol (Zyloprim) 100 mg DAILY PO Last administered on 10/11/18 08:38; Admin Dose 100 MG; Start 10/10/18 at 10:30 Aspirin (Ecotrin) 325 mg DAILY PO Last administered on 10/11/18 08:39; Admin Dose 325 MG; Start 10/11/18 at 09:00 Diltiazem HCl (Cardizem) 60 mg QID PO Last administered on 10/11/18 12:54; Admin Dose 60 MG; Start 10/10/18 at 23:00 Lisinopril (Zestril) 20 mg BID PO Last administered on 10/11/18 08:38; Admin Dose 20 MG; Start 10/10/18 at 23:00 Metoclopramide HCl (Reglan Liq) 10 mg Q6 PO Last administered on 10/11/18 12:54; Admin Dose 10 MG; Start 10/11/18 at 00:00 Metoprolol Tartrate (Lopressor) 50 mg Q6 PO Last administered on 10/11/18 12:53; Admin Dose 50 MG; Start 10/11/18 at 00:00 Quetiapine Fumarate (Seroquel) 50 mg BID PO Last administered on 10/11/18 08:37; Admin Dose 50 MG; Start 10/11/18 at 09:00 Tiotropium [place] (Spiriva) 1 inh DAILY INH Last administered on 10/11/18 08:38; Admin Dose 1 INH; Start 10/11/18 at 09:00 Sodium Chloride 1,000 ml @ 75 mls/hr [id number] IV Last administered on 10/11/18 11:00; Admin Dose 75 MLS/HR; Start 10/11/18 at 11:00 DAVE BOWEN NP Oct 11, 2018 14:32
== END 2018-10-11 15:12 | disposition short-term general hospital (02) | DRG 917 ==
LOC: E/R 04:28 → ICU 08:44 → 6WM 10-11 00:15
PROVIDERS: ADMIT Internal Medicine; ATTEND Internal Medicine
DX: T43.621A Poisoning by amphetamines, accidental (unintentional), initial encounter (principal); J96.01 Acute respiratory failure with hypoxia; M62.82 Rhabdomyolysis; N17.9 Acute kidney failure, unspecified; R41.82 Altered mental status, unspecified; E87.5 Hyperkalemia; E83.42 Hypomagnesemia; I10 Essential (primary) hypertension; G89.29 Other chronic pain; M54.9 Dorsalgia, unspecified
CPT/HCPCS: 36415; 36600; 71045; 76700; 80048; 80053; 80202; 80307; 81001; 81003; 82550; 82553; 82570; 82803; 82962; 83605; 83735; 84300; 84484; 84560; 85025; 85610; 85730; 87040; 87081; 89190; 93005; 94640; 94660; 94664; 96361; 96374; J1630; J1644; J1815; J2250; J2310; J2405; J2543; J3370; J3475; J3480; J7030; J7040; J7070; J7120